=== PATIENT | female | born 1965 | race African-American/Black ===

== ENCOUNTER 2016-09-27 12:25 | Inpatient (IN) | payer BC ==
[~2016-09-27] VITALS: Ht 167.6 cm; Wt 84.7 kg
[2016-09-27] VITALS (12 sets, daily range): BP systolic 143–192; BP diastolic 78–127; PULSE 73–94; TEMP 36.3–37; O2SAT 97–100; Ht 167.6 cm; Wt 84.7 kg
[2016-09-27] MEDS ORDERED: LABETALOL HCL IV 5 MG/ML 20ML IV STA (12:46)
[2016-09-27 13:02] LABS: BASO % 0.5 %; BASO ABS # 0.03 K/uL (0-0.2); COMPLETE YES; EOS % 11.1 %; HEMATOCRIT 41.9 % (37-47); IG% 0.2 %; LYMPH % 25.9 %; LYMPH ABS # 1.49 K/uL (1.2-3.4); MEAN CELL VOLUME 89.3 fL (80-100); MEAN CORPUSCULAR HEMOGLOBIN 31.8 pg (25-34); MEAN CORPUSCULAR HGB CONC 35.6 g/dl (32-36); MEAN PLATELET VOLUME 10.5 fL (7.4-10.4); MONO % 4.9 %; NEUT % 57.4 %; PLATELET COUNT 262 K/uL (130-400); RED BLOOD COUNT 4.69 M/uL (4.2-5.4); WHITE BLOOD COUNT 5.75 K/uL (4.8-10.8)
[2016-09-27] MEDS ORDERED: NAPR1TAB9 PO (13:09)
--- NOTE | 2016-09-27 13:11 | DIAGNOSTIC IMAGING REPORT ---
SINGLE VIEW CHEST CLINICAL HISTORY: Hypertension. FINDINGS: An AP, portable, upright chest radiograph is obtained. No prior studies are available for comparison at the time of dictation. The heart is top normal for projection. There is mild atherosclerotic calcification of the thoracic aorta. The lungs and pleural spaces are clear. No pneumothorax is seen. The bony thorax is grossly intact. IMPRESSION: No acute cardiopulmonary abnormality. Electronically signed by: Mendez Sharma M.D. 09/27/2016 1:10 PM Dictated Date/Time: 09/27/2016 1:09 PM
[2016-09-27 13:12] LABS: PARTIAL THROMBOPLASTIN RATIO 1.1; PROTHROMBIN TIME (PATIENT) 10.4 SECONDS (9.0-12.0)
[2016-09-27 13:20] LABS: ALT/SGPT 21 U/L (12-78); BLOOD UREA NITROGEN 11 mg/dl (7-18); BUN/CREATININE RATIO 14.8 (10-20); CALCIUM 9.2 mg/dl (8.5-10.1); CARBON DIOXIDE 27 mmol/L (21-32); CHLORIDE 102 mmol/L (98-107); CREATININE 0.75 mg/dl (0.60-1.20); GLUCOSE 91 mg/dl (70-99); POTASSIUM 3.1 mmol/L (3.5-5.1); SODIUM 139 mmol/L (136-145)
[2016-09-27 13:30] LABS: ALKALINE PHOSPHATASE 148 U/L (45-117); AST/SGOT 29 U/L (15-37); URINE APPEARANCE CLEAR (CLEAR); URINE BILIRUBIN NEG (NEG); URINE COLOR YELLOW; URINE NITRITE NEG (NEG); URINE SPECIFIC GRAVITY 1.003 (1.000-1.030); UROBILINOGEN NEG (NEG)
[2016-09-27 13:36] LABS: MANUAL MICROSCOPIC REQUIRED? NO; REVIEW REQ? NO
--- NOTE | 2016-09-27 13:36 | DIAGNOSTIC IMAGING REPORT ---
CT SCAN OF THE BRAIN WITHOUT IV CONTRAST CLINICAL HISTORY: Hypertension. Dizziness. COMPARISON STUDY: No priors. TECHNIQUE: Unenhanced axial CT scan of the brain is performed from the vertex to the skull base. Automated dose control exposure was utilized. CT DOSE: 614.27 mGy.cm FINDINGS: Brain parenchyma: There is mild patchy subcortical and periventricular microangiopathic disease. There is no hemorrhage, mass effect, or evidence of acute territorial ischemia by CT criteria. North-white matter is preserved. No extra-axial fluid collection is seen. Ventricles, sulci, cisterns: Normal in configuration. Intracranial vasculature: The visualized intracranial vasculature at the skull base is normal in appearance. Calvarium: Unremarkable. Sinuses and mastoids: The visualized paranasal sinuses are clear. The mastoid air cells are well pneumatized. Orbits: The bony orbits are grossly intact. IMPRESSION: There is no hemorrhage, mass effect, or evidence of acute territorial ischemia by CT criteria. Electronically signed by: Mendez Sharma M.D. 09/27/2016 1:35 PM Dictated Date/Time: 09/27/2016 1:33 PM
[2016-09-27] MEDS ORDERED: HydrALAZINE HCL 20 MG/ML VIAL IV. STA (13:55)
[2016-09-27] MEDS ORDERED: POTASSIUM CHLORIDE 10 MEQ TABCR PO STA ×2 (13:56→14:57)
[2016-09-27] MEDS ORDERED: SPIRONOLACTONE 25 MG TAB PO ONE (14:15)
[2016-09-27] MEDS ORDERED: ALUMINUM/MAGNESIUM/SIMETH (MAALOX MAX) 30 ML UDC PO PRN (14:45)
[2016-09-27] MEDS ORDERED: ACETAMINOPHEN 325 MG TAB PO PRN (14:45)
[2016-09-27] MEDS ORDERED: MAGNESIUM HYDROXIDE SUSP 30 ML UDC PO PRN (14:45)
[2016-09-27] MEDS ORDERED: ONDANSETRON INJ 2 MG/ML 2 ML VIAL IV PRN (14:45)
--- NOTE | 2016-09-27 14:57 | History and Physical ---
History & Physical Date & Time of Service: Sep 27, 2016 at 14:17 Chief Complaint: Hypertension Primary Care Physician: Suzanne Walker M.D. History of Present Illness Source: patient This patient is a pleasant 50-year-old female that presents to emergency department from the eye doctors office with a significantly elevated blood pressure. The patient recently got health insurance. She made an appointment at the eye doctor because she was having difficulty with her far vision. Her blood pressure was taken in the office today an elevated at 235/184. An eye exam was then performed. She was noted to have grade 4 hypertensive retinopathy with hemorrhages noted. The patient does admit to feeling lightheaded on a regular basis. She also had a migraine the other day with sensitivity to light. She denies any shortness of breath. She denies any chest pain. No heart palpitations. The patient does have a history of hypertension. She unfortunately lost health insurance and has been off medications for approximately 1 year. She does not know which medication she used to take. She was switched to a few different medications. One in particular, made her cough. The patient was given 20 mg of labetalol IV. She was also given 2 doses of hydralazine 10 mg IV. Past Medical/Surgical History Medical Problems: (1) Hypertension Status: Chronic Surgical Problems: (1) S/P section Status: Resolved (2) S/P cholecystectomy Status: Resolved (3) S/P hysterectomy Status: Resolved Family History Cancer Diabetes mellitus Hypertension Mother-living hypertension Father at the age of 29. He was murdered. Social History Smoking Status: Never Smoker Alcohol Use: socially Marital Status: single Housing status: lives alone Occupational Status: employed Allergies Coded Allergies: No Known Allergies (Unverified , 09/27/16) Home Medications Scheduled PRN Naproxen (Aleve), 220 MG PO DAILY PRN for Pain Review of Systems 10 system review performed and negative unless noted in HPI or below Physical Exam Vital Signs Date Time Temp Pulse Resp B/P Pulse Ox O2 Delivery O2 Flow Rate FiO2 09/27/16 14:12 78 09/27/16 13:49 66 16 201/134 98 Room Air 09/27/16 13:11 64 24 219/133 98 Room Air 09/27/16 13:05 95 Room Air 09/27/16 12:30 36.5 72 18 250/144 98 Room Air General Appearance: + mild distress (mildly anxious in appearance.) Head: normocephalic Eyes: EOMI, + pertinent finding (sclera injected.) ENT: + pertinent finding (oral mucosa fairly dry.) Neck: no JVD Respiratory/Chest: lungs clear Cardiovascular: regular rate, rhythm Abdomen/GI: normal bowel sounds, non tender, soft Extremities/Musculoskelatal: no calf tenderness, no pedal edema Neurologic/Psych: no motor/sensory deficits, oriented x 3 Skin: warm/dry Diagnostics Laboratory Results Results Past 24 Hours Test 09/27/16 12:50 09/27/16 14:05 Range/Units White Blood Count 5.75 4.8-10.8 K/uL Red Blood Count 4.69 4.2-5.4 M/uL Hemoglobin 14.9 12.0-16.0 g/dL Hematocrit 41.9 37-47 % Mean Corpuscular Volume 89.3 80-100 fL Mean Corpuscular Hemoglobin 31.8 25-34 pg Mean Corpuscular Hemoglobin Concent 35.6 32-36 g/dl Platelet Count 262 130-400 K/uL Mean Platelet Volume 10.5 7.4-10.4 fL Neutrophils (%) (Auto) 57.4 % Lymphocytes (%) (Auto) 25.9 % Monocytes (%) (Auto) 4.9 % Eosinophils (%) (Auto) 11.1 % Basophils (%) (Auto) 0.5 % Neutrophils # (Auto) 3.30 1.4-6.5 K/uL Lymphocytes # (Auto) 1.49 1.2-3.4 K/uL Monocytes # (Auto) 0.28 0.11-0.59 K/uL Eosinophils # (Auto) 0.64 0-0.5 K/uL Basophils # (Auto) 0.03 0-0.2 K/uL RDW Standard Deviation 46.2 36.4-46.3 fL RDW Coefficient of Variation 14.1 11.5-14.5 % Immature Granulocyte % (Auto) 0.2 % Immature Granulocyte # (Auto) 0.01 0.00-0.02 K/uL Prothrombin Time 10.4 9.0-12.0 SECONDS Prothromb Time International Ratio 1.0 0.9-1.1 Activated Partial Thromboplast Time 29.4 21.0-31.0 SECONDS Partial Thromboplastin Ratio 1.1 Urine Color YELLOW Urine Appearance CLEAR CLEAR Urine pH 7.0 4.5-7.5 Urine Specific [place] 1.003 1.000-1.030 Urine Protein 1+ NEG Urine Glucose (UA) NEG NEG Urine Ketones NEG NEG Urine Occult Blood NEG NEG Urine Nitrite NEG NEG Urine Bilirubin NEG NEG Urine Urobilinogen NEG NEG Urine Leukocyte Esterase NEG NEG Urine WBC (Auto) 0 0-5 /hpf Urine RBC (Auto) 0-4 0-4 /hpf Urine Hyaline Casts (Auto) 0 0-5 /lpf Urine Epithelial Cells (Auto) 10-20 0-5 /lpf Urine Bacteria (Auto) NEG NEG Sodium Level 139 136-145 mmol/L Potassium Level 3.1 3.5-5.1 mmol/L Chloride Level 102 98-107 mmol/L Carbon Dioxide Level 27 21-32 mmol/L Anion Gap 10.0 3-11 mmol/L Blood Urea Nitrogen 11 7-18 mg/dl Creatinine 0.75 0.60-1.20 mg/dl Est Creatinine Clear Calc Drug Dose 96.3 ml/min Estimated GFR () 107.0 Estimated GFR (Non- 92.3 BUN/Creatinine Ratio 14.8 10-20 Random Glucose 91 70-99 mg/dl Calcium Level 9.2 8.5-10.1 mg/dl Total Bilirubin 0.6 0.2-1 mg/dl Direct Bilirubin 0.1 0-0.2 mg/dl Aspartate Amino Transf (AST/SGOT) 29 15-37 U/L Alanine Aminotransferase (ALT/SGPT) 21 12-78 U/L Alkaline Phosphatase 148 45-117 U/L Troponin I < 0.015 0-0.045 ng/ml Total Protein 9.4 6.4-8.2 gm/dl Albumin 4.4 3.4-5.0 gm/dl Lipase 122 73-393 U/L Thyroid Stimulating Hormone (TSH) 1.700 0.300-4.500 uIu/ml Diagnostic Radiology SINGLE VIEW CHEST CLINICAL HISTORY: Hypertension. FINDINGS: An AP, portable, upright chest radiograph is obtained. No prior studies are available for comparison at the time of dictation. The heart is top normal for projection. There is mild atherosclerotic calcification of the thoracic aorta. The lungs and pleural spaces are clear. No pneumothorax is seen. The bony thorax is grossly intact. IMPRESSION: No acute cardiopulmonary abnormality. Electronically signed by: Mendez Sharma M.D. 09/27/2016 1:10 PM Dictated Date/Time: 09/27/2016 1:[address] SCAN OF THE BRAIN WITHOUT IV CONTRAST CLINICAL HISTORY: Hypertension. Dizziness. COMPARISON STUDY: No priors. TECHNIQUE: Unenhanced axial CT scan of the brain is performed from the vertex to the skull base. Automated dose control exposure was utilized. CT DOSE: 614.27 mGy.cm FINDINGS: Brain parenchyma: There is mild patchy subcortical and periventricular microangiopathic disease. There is no hemorrhage, mass effect, or evidence of acute territorial ischemia by CT criteria. North-white matter is preserved. No extra-axial fluid collection is seen. Ventricles, sulci, cisterns: Normal in configuration. Intracranial vasculature: The visualized intracranial vasculature at the skull base is normal in appearance. Calvarium: Unremarkable. Sinuses and mastoids: The visualized paranasal sinuses are clear. The mastoid air cells are well pneumatized. Orbits: The bony orbits are grossly intact. IMPRESSION: There is no hemorrhage, mass effect, or evidence of acute territorial ischemia by CT criteria. Electronically signed by: Mendez Sharma M.D. 09/27/2016 1:35 PM Dictated Date/Time: 09/27/2016 1:33 PM EKG NSR 64 BPM LVH Impression Assessment and Plan 50-year-old female since the emergency department from the eye doctor with markedly hypertension and retinal hemorrhages. Noncompliance for insurance reasons. Hypertensive Urgency -Admit to telemetry -Continue Hydralazine 10 mg IV q 6 hr PRN -Begin spironolactone 50 mg daily -Begin nitropaste 2 in q 6 hr--> if good response, consider Imdur upon d/c -Would avoid karen as this likely gave the pt a cough -Consider Metoprolol XL 50 mg daily if HR is stable tomorrow -Trend cardiac enzymes -Monitor renal function -Check aldosterone level -Renal ultrasound -Check echo -check urine microalbumin -Additional recommendations pending response Hypokalemia -Given additional KCl 40 mEq po now DVT prophylaxis -Lovenox 40 mg subQ daily -TEDS, SCDs CODE STATUS -LEVEL I FULL CODE Level of Care Telemetry Resuscitation Status FULL RESUSCITATION VTE Prophylaxis VTE Risk Assessment Done? Y/N: Yes Risk Level: Low Given or contraindicated: Enoxaparin (Lovenox)SQ, T.EJose L Stockralf, SCD's Assessment and Plan Attending Addendum: I have physically seen and examined this patient, have directed their medical care, have supervised the PA's activity, and agree with the H&P as noted above, with the following changes: NONE. The patient is awake, well-developed and adequately nourished, alert and oriented 3, normocephalic and atraumatic, lying in bed and in no acute distress. HEENT--PERRL, EOMI, mucous membranes and oropharynx dry. Neck--supple, no JVD or bruits, thyroid normal, trachea midline, no adenopathy. Heart--normal S1 and S2, no extra beats, no murmurs, rubs or gallops. Lungs--clear bilaterally with good air movement, no respiratory distress, no accessory muscle use. Abdomen--normal bowel sounds and soft, nontender and nondistended, no hernias or masses, no organomegaly. Extremities--no cyanosis, clubbing or edema. There are good distal pulses b/l. Dermatologic--normal skin turgor, normal color, warm and dry, no abnormal lymph nodes, no rash. Neurologic--cranial nerves II through XII grossly intact, motor and sensory examination normal. Rheumatologic--normal range of motion, nontender, muscles and joints. Psychiatric--normal affect. Assessment and Plan: Hypertensive Urgency: The patient will be admitted to the telemetry unit, for serial cardiac enzymes, cardiac rhythm monitoring and a 2-D echocardiogram with Dopplers. She has received labetalol 20 mg IV and then hydralazine 10 mg IV in the emergency department with minimal improvement in blood pressure. Her Low potassium at 3.1 suggests the possibility of aldosteronism, and renin and aldosterone laboratories will be added to her current labs. She'll be started empirically on spironolactone 50 mg by mouth now and every morning, metoprolol tartrate 50 mg by mouth now and twice a day, Nitropaste 1 inch to the anterior chest wall every 6 hours, and with hydralazine 10 mg IV every 6 hours when necessary. We'll also order renal artery Dopplers and renal ultrasounds. EKG suggests left ventricular hypertrophy, will also send a microalbumin. If blood pressure is recalcitrant, could consider 24-hour studies for catecholamines, metanephrines and 5 HIAA. The patient should continue to follow-up with her eye doctor until resolution of the retinal hemorrhages.
[2016-09-27] MEDS: HydrALAZINE HCL 20 MG/ML VIAL IV. PRN ×3 (16:02→22:24)
[2016-09-27] MEDS: NITROGLYCERIN OINT 2% 1GM PACKET EXT SCH ×2 (16:08→22:00)
[2016-09-27] MEDS ORDERED: OXYCODONE/ACETAMINOPHEN 5-325 TAB PO ONE (20:00)
[2016-09-27] MEDS ORDERED: SODIUM CHLORIDE 0.65% NA SOLN 45 ML (OCEAN) PRN (20:00)
[2016-09-27] MEDS ORDERED: METOPROLOL TARTRATE 50 MG TAB PO STA (20:37)
--- NOTE | 2016-09-27 20:45 | EMERGENCY ROOM VISIT NOTE ---
History Report prepared by Renu: Janina Toth Under the Supervision of: Dr. Hebert Vergara M.D. First contact with patient: 12:40 Chief Complaint: HYPERTENSION Stated Complaint: HYPERTENSION History of Present Illness The patient is a 50 year old female who presents to the Emergency Room per physician referral to be evaluated for hypertension today. The patient had an appointment with her eye doctor today due to changes in her distance vision. She state that her blood pressure was 235/184. Her funduscopic exam revealed grade 4 hypertensive retinopathy with multiple flame hemorrhages. Her eye doctor as well as a local primary care office referred the patient to the ER for further evaluation. The patient complains that she has noticed some lightheadedness recently. Today, she felt like she was wheezing slightly. She states that she has a history of mild asthma. She also notes that certain body parts seem to have limited movement and she has had some worsening memory loss, "I think I have had mini-strokes." The patient has a history of hypertension but has not been on medications for about a year due to insurance issues. Pt denies LOC, headache, fevers, chills, diaphoresis, visual changes, neck pain, chest pain, nausea, vomiting, abdominal pain, back pain, melena, hematochezia, urinary symptoms, numbness, weakness, lymphadenopathy, rash, or other complaints. Source of History: patient Onset: today Position: other (global) Quality: other (high blood pressure) Timing: constant Note: Other symptoms: lightheadedness, wheezing Review of Systems See HPI for pertinent positives and negatives. A total of ten systems were reviewed and were otherwise negative. Past Medical & Surgical Medical Problems: (1) Hypertension (2) Hypertensive urgency Surgical Problems: (1) S/P section (2) S/P cholecystectomy (3) S/P hysterectomy Family History Cancer Diabetes mellitus Hypertension Social History Smoking Status: Never Smoker Occupation Status: employed Current/Historical Medications Scheduled PRN Naproxen (Aleve), 220 MG PO DAILY PRN for Pain Allergies Coded Allergies: No Known Allergies (Unverified , 09/27/16) Physical Exam Vital Signs Date Time Temp Pulse Resp B/P Pulse Ox O2 Delivery O2 Flow Rate FiO2 09/27/16 14:46 98 Room Air 09/27/16 14:44 87 18 177/86 98 Room Air 09/27/16 14:12 78 09/27/16 13:49 66 16 201/134 98 Room Air 09/27/16 13:11 64 24 219/133 98 Room Air 09/27/16 13:05 95 Room Air 09/27/16 12:30 36.5 72 18 250/144 98 Room Air Physical Exam GENERAL: Awake, alert, well appearing, no distress HENT: Normocephalic, atraumatic. Possible retinal hemorrhage in the medical aspect of the right fundi. TM's normal. Oropharynx unremarkable. EYES: PERRL. EOMI. Normal conjunctiva. Sclera non-icteric. NECK: Supple. No nuchal rigidity. FROM. No JVD or bruit. RESPIRATORY: CTA CARDIAC: RRR. No murmur. ABDOMEN: Soft, non distended. No tenderness to palpation. No rebound or guarding. No masses. RECTAL: Deferred. MUSCULOSKELETAL: Unremarkable. No edema. No discoloration. Gross motor strength symmetric. NEURO: Cranial nerves 2-12 grossly intact. Normal sensorium. No sensory or motor deficits noted. Speech normal. No pronator drift. SKIN: No rash or jaundice noted. LYMPH: No adenopathy. Medical Decision & Procedures ER Provider Diagnostic Interpretation: Radiology results as stated below per my review and radiologist interpretation: SINGLE VIEW CHEST CLINICAL HISTORY: Hypertension. FINDINGS: An AP, portable, upright chest radiograph is obtained. No prior studies are available for comparison at the time of dictation. The heart is top normal for projection. There is mild atherosclerotic calcification of the thoracic aorta. The lungs and pleural spaces are clear. No pneumothorax is seen. The bony thorax is grossly intact. IMPRESSION: No acute cardiopulmonary abnormality. Electronically signed by: Mendez Sharma M.D. 09/27/2016 1:10 PM Dictated Date/Time: 09/27/2016 1:[address] SCAN OF THE BRAIN WITHOUT IV CONTRAST CLINICAL HISTORY: Hypertension. Dizziness. COMPARISON STUDY: No priors. TECHNIQUE: Unenhanced axial CT scan of the brain is performed from the vertex to the skull base. Automated dose control exposure was utilized. CT DOSE: 614.27 mGy.cm FINDINGS: Brain parenchyma: There is mild patchy subcortical and periventricular microangiopathic disease. There is no hemorrhage, mass effect, or evidence of acute territorial ischemia by CT criteria. North-white matter is preserved. No extra-axial fluid collection is seen. Ventricles, sulci, cisterns: Normal in configuration. Intracranial vasculature: The visualized intracranial vasculature at the skull base is normal in appearance. Calvarium: Unremarkable. Sinuses and mastoids: The visualized paranasal sinuses are clear. The mastoid air cells are well pneumatized. Orbits: The bony orbits are grossly intact. IMPRESSION: There is no hemorrhage, mass effect, or evidence of acute territorial ischemia by CT criteria. Electronically signed by: Mendez Sharma M.D. 09/27/2016 1:35 PM Dictated Date/Time: 09/27/2016 1:33 PM Laboratory Results 09/27/16 12:50 Red Blood Count 4.69, Mean Corpuscular Volume 89.3, Mean Corpuscular Hemoglobin 31.8, Mean Corpuscular Hemoglobin Concent 35.6, Mean Platelet Volume 10.5, Neutrophils (%) (Auto) 57.4, Lymphocytes (%) (Auto) 25.9, Monocytes (%) (Auto) 4.9, Eosinophils (%) (Auto) 11.1, Basophils (%) (Auto) 0.5, Neutrophils # (Auto ) 3.30, Lymphocytes # (Auto) 1.49, Monocytes # (Auto) 0.28, Eosinophils # (Auto ) 0.64, Basophils # (Auto) 0.03 09/27/16 12:50 Test 09/27/16 12:50 09/27/16 14:30 White Blood Count 5.75 K/uL (4.8-10.8) Red Blood Count 4.69 M/uL (4.2-5.4) Hemoglobin 14.9 g/dL (12.0-16.0) Hematocrit 41.9 % (37-47) Mean Corpuscular Volume 89.3 fL (80-100) Mean Corpuscular Hemoglobin 31.8 pg (25-34) Mean Corpuscular Hemoglobin Concent 35.6 g/dl (32-36) Platelet Count 262 K/uL (130-400) Mean Platelet Volume 10.5 fL (7.4-10.4) Neutrophils (%) (Auto) 57.4 % Lymphocytes (%) (Auto) 25.9 % Monocytes (%) (Auto) 4.9 % Eosinophils (%) (Auto) 11.1 % Basophils (%) (Auto) 0.5 % Neutrophils # (Auto) 3.30 K/uL (1.4-6.5) Lymphocytes # (Auto) 1.49 K/uL (1.2-3.4) Monocytes # (Auto) 0.28 K/uL (0.11-0.59) Eosinophils # (Auto) 0.64 K/uL (0-0.5) Basophils # (Auto) 0.03 K/uL (0-0.2) RDW Standard Deviation 46.2 fL (36.4-46.3) RDW Coefficient of Variation 14.1 % (11.5-14.5) Immature Granulocyte % (Auto) 0.2 % Immature Granulocyte # (Auto) 0.01 K/uL (0.00-0.02) Prothrombin Time 10.4 SECONDS (9.0-12.0) Prothromb Time International Ratio 1.0 (0.9-1.1) Activated Partial Thromboplast Time 29.4 SECONDS (21.0-31.0) Partial Thromboplastin Ratio 1.1 Urine Color YELLOW Urine Appearance CLEAR (CLEAR) Urine pH 7.0 (4.5-7.5) Urine Specific [place] 1.003 (1.000-1.030) Urine Protein 1+ (NEG) Urine Glucose (UA) NEG (NEG) Urine Ketones NEG (NEG) Urine Occult Blood NEG (NEG) Urine Nitrite NEG (NEG) Urine Bilirubin NEG (NEG) Urine Urobilinogen NEG (NEG) Urine Leukocyte Esterase NEG (NEG) Urine WBC (Auto) 0 /hpf (0-5) Urine RBC (Auto) 0-4 /hpf (0-4) Urine Hyaline Casts (Auto) 0 /lpf (0-5) Urine Epithelial Cells (Auto) 10-20 /lpf (0-5) Urine Bacteria (Auto) NEG (NEG) Anion Gap 10.0 mmol/L (3-11) Est Creatinine Clear Calc Drug Dose 96.3 ml/min Estimated GFR () 107.0 Estimated GFR (Non- 92.3 BUN/Creatinine Ratio 14.8 (10-20) Calcium Level 9.2 mg/dl (8.5-10.1) Magnesium Level 2.2 mg/dl (1.8-2.4) Total Bilirubin 0.6 mg/dl (0.2-1) Direct Bilirubin 0.1 mg/dl (0-0.2) Aspartate Amino Transf (AST/SGOT) 29 U/L (15-37) Alanine Aminotransferase (ALT/SGPT) 21 U/L (12-78) Alkaline Phosphatase 148 U/L (45-117) Troponin I < 0.015 ng/ml (0-0.045) Total Protein 9.4 gm/dl (6.4-8.2) Albumin 4.4 gm/dl (3.4-5.0) Lipase 122 U/L (73-393) Thyroid Stimulating Hormone (TSH) 1.700 uIu/ml (0.300-4.500) Hepatitis C Antibody Screen NEG (NEG) Laboratory results reviewed by me Medications Administered Medications (Trade) Dose Ordered Sig/Nikki Route Start Time Stop Time Status Last Admin Dose Admin Labetalol HCl (Normodyne IV) 20 mg NOW STAT IV 09/27/16 12:46 09/27/16 12:48 DC 09/27/16 13:03 20 MG Hydralazine HCl (HydrALAZINE INJ) 10 mg NOW STAT IV. 09/27/16 13:55 09/27/16 13:57 DC 09/27/16 14:04 10 MG Potassium Chloride (Klor-Con M10) 20 meq NOW STAT PO 09/27/16 13:56 09/27/16 13:57 DC 09/27/16 14:04 20 MEQ Spironolactone (Aldactone Tab) 50 mg NOW ONCE PO 09/27/16 14:15 09/27/16 14:22 DC 09/27/16 14:46 50 MG Hydralazine HCl (HydrALAZINE INJ) 10 mg Q6H PRN IV. 09/27/16 14:45 10/27/16 14:44 09/27/16 16:03 10 MG Acetaminophen (Tylenol Tab) 650 mg Q4H PRN PO 09/27/16 14:45 10/27/16 14:44 09/27/16 17:52 650 MG ECG Indication: other (hypertension) Rate (beats per minute): 64 Rhythm: normal sinus Findings: nonspecific-ST abn, no acute ischemic change, other (LVH) ED Course 1243: The patient was evaluated in room A2. A complete history and physical exam was performed. 1246: Ordered Labetalol HCl 20 mg IV. 1341: I reassessed the patient. She was doing well. 1351: Upon reexamination, the patient was resting comfortably. I discussed the test results and treatment plan with her. The patient will be evaluated for further management. 1355: Ordered Hydralazine HCl 10 mg IV, Potassium Chloride 20 meq PO. 1402: I discussed the case with Dr. Efren VALDEZ Hospitalist. The patient will be evaluated for further management. Medical Decision Prior records/ancillary studies reviewed regarding the history above. Triage Nursing notes reviewed and agree them. Additional history obtained from the family. The patient's history was concerning for hypertension. Differential diagnosis: Etiologies such as hypertensive emergency, benign hypertension, cardiovascular pathology, pheochromocytoma, electrolyte abnormality, renal disease, endorgan damage, as well as others were entertained. Physical examination: As above. ER treatment provided: IV labetalol 20 mg IV hydralazine 10 mg Oral potassium On reassessment the patient felt better. Diagnostic interpretation by me: The electrocardiogram was negative for pathologic change. The labs revealed an unremarkable CBC. Mild hypokalemia. Urinalysis, troponin , TSH was negative. Imaging studies: Chest x-ray and CT scan as above The patient has severe hypertension with end organ findings. She was treated as above. Further management will be necessary. Consultation: A consultation was placed with the hospitalist. The case was discussed and diagnostics were reviewed. The patient was evaluated in the ER for further treatment. The chart was completed utilizing [email or web address] Speech voice recognition software. Grammatical errors, random word insertions, pronoun errors, and incomplete sentences are an occasional consequence of this system due to software limitations, ambient noise, and hardware issues. Any formal questions or concerns about the content, text, or information contained within the body of this dictation should be directly addressed to the physician for clarification. Consults Time Called: 1352 Consulting Physician: Dr. Efren VALDEZ Hospitalist Returned Call: 1402 I discussed the case with him. The patient will be evaluated for further management. Impression Primary Impression: Hypertensive emergency Critical Care I have personally spent greater than 30 minutes of critical care time in the direct management of this patient. This includes bedside care, interpretation of diagnostic studies, and testing, discussion with consultants, patient, and other required patient management activities. This 30 minutes is in excess of all separately billable procedures. Scribe Attestation The scribe's documentation has been prepared under my direction and personally reviewed by me in its entirety. I confirm that the note above accurately reflects all work, treatment, procedures, and medical decision making performed by me. Departure Information Dispostion Being Evaluated By Hospitalist Referrals No Doctor, Assigned (PCP) Patient Instructions My [facility]
[2016-09-27] MEDS ORDERED: ENOXAPARIN 40 MG/0.4 ML SYR SC SCH (21:00)
[2016-09-28] VITALS (11 sets, daily range): BP systolic 152–191; BP diastolic 84–118; PULSE 62–68; TEMP 36.6–36.9; O2SAT 91–98
[2016-09-28] MEDS: NITROGLYCERIN OINT 2% 1GM PACKET EXT SCH ×4 (03:44→21:41)
--- NOTE | 2016-09-28 06:13 | DIAGNOSTIC IMAGING REPORT ---
Renal arterial Doppler DUPLEX RENAL ARTERY CLINICAL HISTORY: elevated bp hypertension TECHNIQUE: Doppler ultrasound COMPARISON STUDY: None FINDINGS: Unremarkable arterial Doppler. Velocities waveforms are unremarkable. Impedance characteristics are unremarkable. IMPRESSION: No significant stenosis Electronically signed by: Matty Adame M.D. 09/28/2016 6:12 AM Dictated Date/Time: 09/28/2016 6:11 AM
[2016-09-28] MEDS ORDERED: NURSING VERBAL MED ORDER ONE (06:30)
[2016-09-28] MEDS ORDERED: OXYCODONE/ACETAMINOPHEN 5-325 TAB PO SCH (06:30)
--- NOTE | 2016-09-28 06:34 | DIAGNOSTIC IMAGING REPORT ---
RENAL ULTRASOUND HISTORY: Hypertension elevated bp COMPARISON: None. FINDINGS: Right kidney: Maximum dimension 9.7 cm. No evidence for hydronephrosis Normal corticomedullary differentiation and cortical thickness. Left kidney: Maximum dimension 10.4 cm. No evidence for hydronephrosis Normal corticomedullary differentiation and cortical thickness. Bladder: No bladder wall thickening. The bilateral ureteral jets were identified. IMPRESSION: Normal renal ultrasound. Electronically signed by: Matty Adame M.D. 09/28/2016 6:32 AM Dictated Date/Time: 09/28/2016 6:32 AM
[2016-09-28] MEDS: METOPROLOL TARTRATE 50 MG TAB PO SCH ×2 (08:01→20:24)
[2016-09-28] MEDS ORDERED: HydrALAZINE HCL 20 MG/ML VIAL IV. PRN (08:45)
[2016-09-28] MEDS ORDERED: SPIRONOLACTONE 25 MG TAB PO SCH (09:00)
[2016-09-28] MEDS ORDERED: NAPROXEN 250 MG TAB PO STA (09:07)
--- NOTE | 2016-09-28 09:27 | Progress Note ---
Subjective Date of Service: Sep 28, 2016. Subjective Pt evaluation today including: conversation w/ patient, physical exam, chart review, lab review, review of studies, review of inpatient medication list Voiding: no voiding problems Complaining about left upper temporal area area o headache, mild photophobia, reported vision in the left side is improved compared to yesterday, no anterior auricle area pain, no fever and chill, Problem List Medical Problems: (1) Hypertensive emergency Status: Acute Review of Systems Constitutional: No chills, No fatigue, No fever, No problem reported, No sweats , No weakness, No weight loss Eyes: No diplopia, No discharge, No eye pain, No redness, No worsening of vision ENT: No dental problems, No hearing loss, No nasal symptoms, No sore throat, No tinnitus, No trouble swallowing, No unusual epistaxis Respiratory: No cough, No dyspnea at rest, No dyspnea on exertion, No hemoptysis, No shortness of breath, No sputum, No wheezing Cardiac: No PND, No chest pain, No claudication, No edema, No orthopnea, No palpitations Abdomen: No constipation, No diarrhea, No nausea, No pain, No vomiting Musculoskeletal: No calf pain, No joint pain, No muscle pain, No swelling Female : No abnormal vaginal bleeding, No dysuria, No hematuria, No incontinence, No urinary frequency, No vaginal discharge Neurologic: No balance problems, No memory loss, No numbness/tingling, No paralysis, No vertigo, No weakness Psychiatric: No anhedonism, No anxiety, No depression symptoms, No insomnia, No substance abuse Heme: No abnormal bleeding/bruising, No clotting problems, No night sweats, No swollen lymph nodes Endo: No excessive thirst, No excessive urination, No fatigue Skin: No bleeding, No color change, No itch, No new/changing skin lesions, No rash Objective Vital Signs Date Time Temp Pulse Resp B/P Pulse Ox O2 Delivery O2 Flow Rate FiO2 09/28/16 08:05 36.6 64 16 191/118 98 Room Air 175/105 09/28/16 04:00 96 Room Air 09/28/16 03:20 36.9 67 16 152/90 96 Room Air 09/28/16 00:00 98 Room Air 09/27/16 23:21 37.0 94 158/78 98 Room Air 09/27/16 22:45 157/82 09/27/16 22:05 79 192/127 09/27/16 20:30 93 170/111 09/27/16 20:00 97 Room Air 09/27/16 19:45 36.8 84 20 186/109 97 Room Air 09/27/16 18:45 36.5 83 20 162/91 98 Room Air 09/27/16 17:30 82 153/90 81 158/88 09/27/16 16:28 73 147/91 Nasal Cannula 143/87 09/27/16 16:02 36.3 94 22 182/119 100 Room Air 09/27/16 16:00 98 Room Air 09/27/16 15:20 90 22 196/115 98 Room Air 09/27/16 14:46 98 Room Air 09/27/16 14:44 87 18 177/86 98 Room Air 09/27/16 14:12 78 09/27/16 13:49 66 16 201/134 98 Room Air 09/27/16 13:11 64 24 219/133 98 Room Air 09/27/16 13:05 95 Room Air 09/27/16 12:30 36.5 72 18 250/144 98 Room Air Physical Exam General Appearance: WD/WN, no apparent distress Eyes: normal inspection, PERRL, EOMI, sclerae normal ENT: normal ENT inspection, hearing grossly normal, pharynx normal Neck: supple, no adenopathy, thyroid normal, no JVD, no carotid bruits, trachea midline Respiratory/Chest: chest non-tender, lungs clear, normal breath sounds, no respiratory distress, no accessory muscle use Cardiovascular: regular rate, rhythm, no edema, no gallop, no JVD, no murmur Abdomen: normal bowel sounds, non tender, soft, no organomegaly, no pulsatile mass Extremities: normal range of motion, non-tender, normal inspection, no pedal edema, no calf tenderness, normal capillary refill, pelvis stable Neurologic/Psychiatric: apparel manager II-XII nml as tested, no motor/sensory deficits, alert, normal mood/affect, oriented x 3 Skin: normal color, warm/dry, no rash, + pertinent finding (left temporal artery area has no local red, tender,) Lymphatic: no adenopathy Laboratory Results Last 24 Hours Test 09/27/16 12:50 3/13/17 14:30 09/28/16 06:43 09/28/16 08:23 White Blood Count 5.75 K/uL Red Blood Count 4.69 M/uL Hemoglobin 14.9 g/dL Hematocrit 41.9 % Mean Corpuscular Volume 89.3 fL Mean Corpuscular Hemoglobin 31.8 pg Mean Corpuscular Hemoglobin Concent 35.6 g/dl Platelet Count 262 K/uL Mean Platelet Volume 10.5 fL Neutrophils (%) (Auto) 57.4 % Lymphocytes (%) (Auto) 25.9 % Monocytes (%) (Auto) 4.9 % Eosinophils (%) (Auto) 11.1 % Basophils (%) (Auto) 0.5 % Neutrophils # (Auto) 3.30 K/uL Lymphocytes # (Auto) 1.49 K/uL Monocytes # (Auto) 0.28 K/uL Eosinophils # (Auto) 0.64 K/uL Basophils # (Auto) 0.03 K/uL RDW Standard Deviation 46.2 fL RDW Coefficient of Variation 14.1 % Immature Granulocyte % (Auto) 0.2 % Immature Granulocyte # (Auto) 0.01 K/uL Prothrombin Time 10.4 SECONDS Prothromb Time International Ratio 1.0 Activated Partial Thromboplast Time 29.4 SECONDS Partial Thromboplastin Ratio 1.1 Urine Color YELLOW Urine Appearance CLEAR Urine pH 7.0 Urine Specific [place] 1.003 Urine Protein 1+ Urine Glucose (UA) NEG Urine Ketones NEG Urine Occult Blood NEG Urine Nitrite NEG Urine Bilirubin NEG Urine Urobilinogen NEG Urine Leukocyte Esterase NEG Urine WBC (Auto) 0 /hpf Urine RBC (Auto) 0-4 /hpf Urine Hyaline Casts (Auto) 0 /lpf Urine Epithelial Cells (Auto) 10-20 /lpf Urine Bacteria (Auto) NEG Sodium Level 139 mmol/L Potassium Level 3.1 mmol/L Chloride Level 102 mmol/L Carbon Dioxide Level 27 mmol/L Anion Gap 10.0 mmol/L Blood Urea Nitrogen 11 mg/dl Creatinine 0.75 mg/dl Est Creatinine Clear Calc Drug Dose 96.3 ml/min Estimated GFR () 107.0 Estimated GFR (Non- 92.3 BUN/Creatinine Ratio 14.8 Random Glucose 91 mg/dl Calcium Level 9.2 mg/dl Magnesium Level 2.2 mg/dl Total Bilirubin 0.6 mg/dl Direct Bilirubin 0.1 mg/dl Aspartate Amino Transf (AST/SGOT) 29 U/L Alanine Aminotransferase (ALT/SGPT) 21 U/L Alkaline Phosphatase 148 U/L Troponin I < 0.015 ng/ml Total Protein 9.4 gm/dl Albumin 4.4 gm/dl Lipase 122 U/L Thyroid Stimulating Hormone (TSH) 1.700 uIu/ml Hepatitis C Antibody Screen NEG Urine Random Microalbumin 180.0 mg/L Assessment and Plan 50-year-old female admitted on 09/27/2016 from the eye doctor with markedly hypertension and retinal hemorrhages. Noncompliance for insurance reasons. Hypertensive Urgency: Improved, stable Significant family history of early onset hypertension, mom has hypertension diagnosed at 20-year-old Significant hypertension with medicine noncompliance, however and the differential diagnosis include secondary hypertension because of early onset of OH at 40s, and poor controlled, and family history of early onset The differential diagnosis include renal artery stenosis which has been rule out because of renal artery ultrasound were negative, patient is having hypokinemia, Conn syndrome is in the list of differential diagnosis, renin and Aldactone level were sent, I'm sending 24-hour metanephrine and serum metanephrine fraction, and checking cortisol level, TSH patient willing to have follow-up with the PCP will have Navigator to setting up appointment in 5-7 days, Headache, without any evidence of left temporal artery area red or tender, differential diagnoses include temporal arteritis, but I feel the risks is very low, we'll check ESR left retinal hemorrhage, lesion is not getting worse today, I told her to follow-up with glass forming engineer, I counseling about the importance of blood pressure control Hypokalemia, am labs is pending will f/u plan: cont tele, Continue but increased Hydralazine 20 mg IV q 6 hr PRN cont spironolactone 50 mg daily cont Metoprolol XL 50 mg daily if HR is stable tomorrow -Trend cardiac enzymes -f/u echo DVT prophylaxis -Discontinue Lovenox 40 mg subQ daily, because of left retinal hemorrhage -Continue TEDS, SCDs CODE STATUS -LEVEL I FULL CODE Continued [facility] stay due to: multiple IV medications needed Discharge planning: home
[2016-09-28 09:49] LABS: BUN/CREATININE RATIO 15.4 (10-20); CREATININE 0.8 mg/dl (0.60-1.20); MAGNESIUM 2.3 mg/dl (1.8-2.4); POTASSIUM 3.6 mmol/L (3.5-5.1)
--- NOTE | 2016-09-28 10:40 | ECHOCARDIOGRAM REPORT ---
*NOTICE TO RECEIVING DEMOCRAT AGENCY This information is strictly Confidential and protected under [place] law. [place] law prohibits you from making any further disclosure of this information unless further disclosure is expressly permitted by the written consent of the person to whom it pertains or is authorized by law. A general authorization for the release of medical or other information is not sufficient for this purpose. Hospital accepts no responsibility if the information is made available to any other person, INCLUDING THE PATIENT. Interpretation Summary * Name: DRE MUIR Study Date: 09/28/2016 08:07 AM BP: 175/105 mmHg * Patient Location: C.2T\S\S240\S\2 HR: 67 * : 1965 (M/d/yyyy) Gender: Female Height: 66 in * Age: 50 yrs Ethnicity: AA Weight: 182 lb * Ordering Physician: Guy Schwartz * Referring Physician: Self, Referred * Performed By: Babita Gonzales RDCS * * Reason For Study: MALIGNANT HTN * BSA: 1.9 m2 * History: MALIGNANT HTN * -- Conclusions -- * 1. Normal left ventricular size systolic function. EF 60-65%. No regional wall motion abnormalities. Moderate concentric left ventricular hypertrophy. Type 1 diastolic dysfunction. * 2. No significant valvular abnormalities. * 3. No prior study available for comparison. Procedure Details * A complete two-dimensional transthoracic echocardiogram was performed (2D, M-mode, Doppler and color flow Doppler). Left Ventricle * Normal left ventricular size systolic function. EF 60-65%. No regional wall motion abnormalities. Moderate concentric left ventricular hypertrophy. Type 1 diastolic dysfunction. Right Ventricle * The right ventricle is normal in size and function. * The right ventricular systolic function is normal as assessed by tricuspid annular plane systolic excursion (TAPSE) (normal >1.5 cm). Atria * The left atrial size is normal. * Right atrial size is normal. * There is no evidence of atrial septal defect, but resolution does not allow assessment for a patent foramen ovale. Mitral Valve * The mitral valve is normal in structure and function. * There is no mitral valve stenosis. * There is trace mitral regurgitation. Tricuspid Valve * The tricuspid valve is not well visualized, but is grossly normal. * There is no tricuspid stenosis. * Significant tricuspid regurgitation is absent. Aortic Valve * The aortic valve is normal in structure and function. * The aortic valve is trileaflet. * No hemodynamically significant valvular aortic stenosis. * No aortic regurgitation is present. Pulmonic Valve * The pulmonary valve is inadequately visualized, but the Doppler data is adequate for interpretation. * There is no pulmonic valvular stenosis. * There is no significant pulmonary regurgitation. Great Vessels * The aortic root is normal size. * Aortic arch of normal dimension. * Normal hepatic and pulmonary venous flow patterns. Pericardium/Pleural * There is no pericardial effusion. Great Vessels * Normal inferior vena cava size and collapsability with sniff indicates a normal right atrial pressure of 3 mmHg MMode 2D Measurements and Calculations IVSd 1.4 cm IVSs 1.9 cm LVIDd 4.2 cm LVIDs 2.8 cm LVPWd 1.4 cm LVPWs 1.8 cm IVS/LVPW 0.99 FS 32.7 % EDV(Teich) 77.4 ml ESV(Teich) 29.8 ml EF(Teich) 61.5 % EDV(cubed) 72.7 ml ESV(cubed) 22.2 ml EF(cubed) 69.5 % % IVS thick 38.9 % % LVPW thick 28.2 % LV mass(C)d 215.4 grams LV mass(C)dI 112.1 grams/m\S\2 LV mass(C)s 207.7 grams LV mass(C)sI 108.1 grams/m\S\2 SV(Teich) 47.6 ml SI(Teich) 24.8 ml/m\S\2 SV(cubed) 50.5 ml SI(cubed) 26.3 ml/m\S\2 Ao root diam 3.0 cm Ao root area 7.3 cm\S\2 LA dimension 3.6 cm LA/Ao 1.2 LVAd ap4 26.4 cm\S\2 LVLd ap4 8.1 cm EDV(MOD-sp4) 72.3 ml EDV(sp4-el) 72.9 ml LVAs ap4 14.1 cm\S\2 LVLs ap4 6.6 cm ESV(MOD-sp4) 28.4 ml ESV(sp4-el) 25.5 ml EF(MOD-sp4) 60.7 % EF(sp4-el) 65.0 % LVAd ap2 25.5 cm\S\2 LVLd ap2 8.2 cm EDV(MOD-sp2) 70.1 ml EDV(sp2-el) 67.4 ml LVAs ap2 15.4 cm\S\2 LVLs ap2 7.1 cm ESV(MOD-sp2) 29.8 ml ESV(sp2-el) 28.2 ml EF(MOD-sp2) 57.5 % EF(sp2-el) 58.1 % LVLd %diff 0.68 % EDV(MOD-bp) 71.8 ml LVLs %diff 7.5 % ESV(MOD-bp) 29.5 ml EF(MOD-bp) 58.9 % SV(MOD-sp4) 43.9 ml SI(MOD-sp4) 22.8 ml/m\S\2 SV(MOD-sp2) 40.3 ml SI(MOD-sp2) 21.0 ml/m\S\2 SV(MOD-bp) 42.3 ml SI(MOD-bp) 22.0 ml/m\S\2 SV(sp4-el) 47.3 ml SI(sp4-el) 24.6 ml/m\S\2 SV(sp2-el) 39.2 ml SI(sp2-el) 20.4 ml/m\S\2 Doppler Measurements and Calculations MV E max alexander 66.0 cm/sec MV A max alexander 78.6 cm/sec MV E/A 0.84 MV dec time 0.27 sec Ao V2 max 144.6 cm/sec Ao max PG 8.4 mmHg Ao max PG (full) 5.3 mmHg LV V1 max PG 3.0 mmHg LV V1 max 86.8 cm/sec TV E max alexander 66.0 cm/sec RAP systole 3.0 mmHg
[2016-09-28] MEDS: NAPROXEN 250 MG TAB PO PRN (12:25)
[2016-09-28] MEDS ORDERED: LISINOPRIL 5 MG TAB PO ONE (15:00)
[2016-09-29] VITALS: O2SAT 96
[2016-09-29 02:56] VITALS: BP 126/81; PULSE 59; TEMP 36.5; O2SAT 93
[2016-09-29 04:00] VITALS: O2SAT 93
[2016-09-29] MEDS: NITROGLYCERIN OINT 2% 1GM PACKET EXT SCH ×2 (04:00→10:00)
[2016-09-29] MEDS: NAPROXEN 250 MG TAB PO PRN ×2 (06:03→13:16)
[2016-09-29 06:46] LABS: BUN/CREATININE RATIO 20.8 (10-20); CALCIUM 8.8 mg/dl (8.5-10.1); CREATININE 0.77 mg/dl (0.60-1.20); MAGNESIUM 2.1 mg/dl (1.8-2.4); POTASSIUM 3.8 mmol/L (3.5-5.1)
[2016-09-29 07:31] VITALS: BP_SYST 173; BP_SYST 179; BP_DIAS 105; BP_DIAS 110; PULSE 64; TEMP 36.9; O2SAT 96
[2016-09-29] MEDS ORDERED: METO50TA17 PO (08:05)
[2016-09-29] MEDS ORDERED: LSN5 PO (08:05)
[2016-09-29] MEDS ORDERED: LISINOPRIL 5 MG TAB PO SCH (09:00)
[2016-09-29] MEDS: METOPROLOL TARTRATE 50 MG TAB PO SCH (09:08)
--- NOTE | 2016-09-29 09:26 | Discharge Instructions ---
Discharge Instructions Date of Service Sep 29, 2016. Admission Reason for Admission: Hypertensive Urgency Discharge Discharge Diagnosis / Problem: hypertension and retinal hemorrhages Discharge Goals Goal(s): Decrease discomfort, Improve function, Increase independence, Improve disease control, Improve nutritional status, Learn about illness, Diagnostic testing, Therapeutic intervention, Prevent Disease Progression, Specific goals Activity Recommendations Activity Limitations: per Instructions/Follow-up section Exercise/Sports Limitations: gradually increase as tolerated May Resume Sexual Activity: when tolerated Shower/Bathe: no limitations . Instructions / Follow-Up Instructions / Follow-Up You have Hypertensive Urgency: You possible have secondary hypertension and difficult controlled hypertension I give you to blood pressure medication you should take it as instructed Recommend to check blood pressure 2 time a day, writing down the number, and bring the log to the follow-up visit with PCP You need to call 911 or go to emergency room if systolic blood pressure more than 200, or if have any signs of severe headache, blurred vision, nausea, vomiting, chest pain you have left retinal hemorrhage you need to follow-up with principal database developer, your echocardiogram showed Moderate concentric left ventricular hypertrophy and Type 1 diastolic dysfunction, very likely from uncontrolled high blood pressure, you need to follow-up with PCP of this condition - you need to follow up with your primary care physician as scheduled - take medication as instructed, never overdose or any misuse, or take with alcohol, because misuse of medicine may cause organ damage or , call your primary care physician if have questions of medicaitons. - call your primary care physician OR go to local emergency room if has any fever/chill, chest pain, shortness of breathing, nausea/vomiting/abdominal pain , facial droop/slurry speech/local weakness, or if has any questions. - fall precaution - diet as instructed - you should understand that it is important to follow up the above instruction , and "not following the above instruction" may cause delayed or missed care of your medical conditions which may cause permanent organ damage and even . Current Hospital Diet Patient's current hospital diet: Regular Diet Discharge Diet Recommended Diet: Low Sodium Diet (2gm Na) Pending Studies Studies pending at discharge: no Laboratory Results Meds Administered (Past 24Hrs) Medications (Trade) Dose Ordered Sig/Nikki Route Start Time Stop Time Status Last Admin Dose Admin Labetalol HCl (Normodyne IV) 20 mg NOW STAT IV 09/27/16 12:46 09/27/16 12:48 DC 09/27/16 13:03 20 MG Hydralazine HCl (HydrALAZINE INJ) 10 mg NOW STAT IV. 09/27/16 13:55 09/27/16 13:57 DC 09/27/16 14:04 10 MG Potassium Chloride (Klor-Con M10) 20 meq NOW STAT PO 09/27/16 13:56 09/27/16 13:57 DC 09/27/16 14:04 20 MEQ Spironolactone (Aldactone Tab) 50 mg NOW ONCE PO 09/27/16 14:15 09/27/16 14:22 DC 09/27/16 14:46 50 MG Nitroglycerin (Nitroglycerin 2% Oint) 1 inch Q6H EXT 09/27/16 16:00 10/27/16 14:44 09/27/16 16:08 1 INCH Spironolactone (Aldactone Tab) 50 mg QAM PO 09/28/16 09:00 10/28/16 08:59 Future Hold 09/28/16 08:02 50 MG Hydralazine HCl (HydrALAZINE INJ) 10 mg Q6H PRN IV. 09/27/16 14:45 09/28/16 08:25 DC 09/27/16 22:24 10 MG Enoxaparin Sodium (Lovenox Inj) 40 mg Q24H SC 09/27/16 21:00 09/28/16 08:25 DC 09/27/16 21:20 40 MG Acetaminophen (Tylenol Tab) 650 mg Q4H PRN PO 09/27/16 14:45 10/27/16 14:44 09/27/16 17:52 650 MG Ondansetron HCl (Zofran Inj) 4 mg Q6H PRN IV 09/27/16 14:45 10/27/16 14:44 09/28/16 10:06 4 MG Potassium Chloride (Klor-Con M10) 40 meq NOW STAT PO 09/27/16 14:57 09/27/16 15:08 DC 09/27/16 15:24 40 MEQ Sodium Chloride ([place] Nasal [place]) 1 sprays UD PRN NA 09/27/16 20:00 10/27/16 19:59 09/27/16 20:31 1 SPRAYS Oxycodone/ Acetaminophen (Percocet 5-325mg Tab) 1 tab NOW ONCE PO 09/27/16 20:00 09/27/16 20:06 DC 09/27/16 20:30 1 TAB Metoprolol Tartrate (Lopressor Tab) 50 mg NOW STAT PO 09/27/16 20:37 09/27/16 20:54 DC 09/27/16 21:21 50 MG Metoprolol Tartrate (Lopressor Tab) 50 mg BID PO 09/28/16 09:00 10/28/16 08:59 09/29/16 09:08 50 MG Oxycodone/ Acetaminophen (Percocet 5-325mg Tab) 1 tab TODAY@0630 PO 09/28/16 06:30 09/28/16 07:30 DC 09/28/16 06:39 1 TAB Hydralazine HCl (HydrALAZINE INJ) 20 mg Q6H PRN IV. 09/28/16 08:45 10/28/16 08:44 09/29/16 07:53 20 MG Naproxen (Naprosyn Tab) 250 mg NOW STAT PO 09/28/16 09:07 09/28/16 09:17 DC 09/28/16 10:07 250 MG Naproxen (Naprosyn Tab) 250 mg BID PRN PO 09/28/16 09:15 10/28/16 09:14 09/29/16 06:03 250 MG Lisinopril (Zestril Tab) 5 mg QAM PO 09/29/16 09:00 10/29/16 08:59 09/29/16 09:08 5 MG Lisinopril (Zestril Tab) 5 mg 1500 ONCE PO 09/28/16 15:00 09/28/16 15:01 DC 09/28/16 15:40 5 MG Medical Emergencies . Who to Call and When: Medical Emergencies: If at any time you feel your situation is an emergency, please call 911 immediately. . Non-Emergent Contact Non-Emergency issues call your: Primary Care Provider . . "Provider Documentation" section prepared by Krishna Scott. VTE Core Measure Inpt VTE Proph given/why not?: Enoxaparin (Lovenox)SQ, T.E.D. Stockings, SCD's
--- NOTE | 2016-09-29 09:49 | Discharge Summary ---
Discharge Summary Date of Service Sep 29, 2016. Discharge Summary Admission Date: Sep 27, 2016 at 14:56 Discharge Date: Sep 29, 2016 Discharge Disposition: Home Principal Diagnosis: Hypertensive Urgency: Problems/Secondary Diagnoses: Hypertensive Urgency: possible have secondary hypertension and difficult controlled hypertension left retinal hemorrhage Moderate concentric left ventricular hypertrophy and Type 1 diastolic dysfunction, compensated Procedures: EKG, echocardiogram, Echocardiogram per report on 09/28/2016 in below Interpretation Summary * Reason For Study: MALIGNANT HTN * BSA: 1.9 m2 * History: MALIGNANT HTN * -- Conclusions -- * 1. Normal left ventricular size systolic function. EF 60-65%. No regional wall motion abnormalities. Moderate concentric left ventricular hypertrophy. Type 1 diastolic dysfunction. * 2. No significant valvular abnormalities. * 3. No prior study available for comparison. Medication Reconciliation New Medications: Lisinopril (Lisinopril) 5 Mg Tab 5 MG PO QAM for 30 Days, #30 TAB Metoprolol Tartrate (Metoprolol Tartrate) 50 Mg Tab 50 MG PO BID for 30 Days, #60 TAB hold when sbp<110, or HR<65 Continued Medications: Naproxen (Aleve) 220 Mg Tab 220 MG PO DAILY PRN for Pain, TAB Discharge Exam Was having headache this morning, blood pressure systolic blood pressure was 179 in the episodes, had headache resolved after blood pressure improved, No other complaint now, eating good out off bed no dizziness Review of Systems: Constitutional: No chills, No fatigue, No fever, No problem reported, No sweats, No weakness, No weight loss Eyes: No diplopia, No discharge, No eye pain, No problem reported, No redness, No worsening of vision ENT: No dental problems, No hearing loss, No nasal symptoms, No problem reported, No sore throat, No tinnitus, No trouble swallowing, No unusual epistaxis Respiratory: No cough, No dyspnea at rest, No dyspnea on exertion, No hemoptysis, No problem reported, No shortness of breath, No sputum, No wheezing Cardiovascular: No PND, No chest pain, No claudication, No edema, No orthopnea, No palpitations, No problem reported Abdomen: No GI bleeding, No constipation, No diarrhea, No nausea, No pain, No problem reported, No vomiting Musculoskeletal: No calf pain, No joint pain, No muscle pain, No problem reported, No swelling Genitourinary - Female: No dysmenorrhea, No dysuria, No hematuria, No menorrhagia, No metrorrhagia, No , No problem reported, No rash, No urinary frequency, No urinary incontinence, No urinary retention, No urinary urgency, No vaginal bleeding, No vaginal discharge, No vaginal itching, No vulvodynia Neurologic: No balance problems, No memory loss, No numbness/tingling, No paralysis, No problem reported, No vertigo, No weakness Psychiatric: No anhedonism, No anxiety, No depression symptoms, No insomnia , No problem reported, No substance abuse Endocrine: No excessive thirst, No excessive urination, No fatigue, No problem reported Hematologic / Lymphatic: No abnormal bleeding/bruising, No clotting problems , No night sweats, No problem reported, No swollen lymph nodes Integumentary: No bleeding, No color change, No itch, No new/changing skin lesions, No problem reported, No rash Physical Exam: General Appearance: WD/WN, no apparent distress Eyes: normal inspection, PERRL, EOMI ENT: normal ENT inspection, hearing grossly normal, TMs normal Neck: supple, no adenopathy, thyroid normal Respiratory/Chest: chest non-tender, lungs clear, normal breath sounds, no respiratory distress Cardiovascular: regular rate, rhythm, no edema, no gallop, no JVD, no murmur , normal peripheral pulses Abdomen / GI: normal bowel sounds, non tender, soft, no organomegaly, no pulsatile mass Extremities: normal inspection, no calf tenderness, normal capillary refill , no pedal edema, normal range of motion 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 Noncompliance for insurance reasons. Hypertensive Urgency: Improved, mild fluctuation, but highest was at 179 Significant family history of early onset hypertension, mom has hypertension diagnosed at 20-year-old Significant hypertension with medicine noncompliance, however and the differential diagnosis include secondary hypertension because of early onset of OH at 40s, and poor controlled, and family history of early onset The differential diagnosis include renal artery stenosis which has been rule out because of renal artery ultrasound were negative, patient is having hypokinemia, Conn syndrome is in the list of differential diagnosis, renin and Aldactone level were sent, I'm sending 24-hour metanephrine and serum metanephrine fraction, and checking cortisol level, TSH patient willing to have follow-up with the PCP will have Navigator to setting up appointment in 5-7 days, Headache, without any evidence of left temporal artery area red or tender, differential diagnoses include temporal arteritis, but I feel the risks is very low, checked ESR, which was 20, therefore temporal arteritis is very less likely Has length discussion about the importance of blood pressure control which can prevent heart disease, stroke, damages to other organ/ systems such as kidney, encourage above medicine compliant, and follow-up with family doctor, and encourage her to report to family doctor if have any questions left retinal hemorrhage, lesion is not getting worse today, I told her to follow-up with exhibition carver, I counseling about the importance of blood pressure control Hypokalemia, resolved will f/u plan: Has been on tele, Continue but increased Hydralazine 20 mg IV q 6 hr PRN Discontinue spironolactone 50 mg daily cont Metoprolol XL 50 mg twice a day with parameter to hold Continue lisinopril, which was started from yesterday -Trend cardiac enzymes which was negative echo in the above Renal artery ultrasound was done, has no renal artery stenosis Tests for the secondary hypertension such as metanephrine fraction, 24 hour urine metanephrine level, renin and Aldactone level were sent, Random cortisol level is elevated in the morning , will check abdominal CT with contrast to rule out adrenal grand adenoma TSH was normal PCP please follow-up the results DVT prophylaxis -Discontinue Lovenox 40 mg subQ daily, because of left retinal hemorrhage -Continue TEDS, SCDs CODE STATUS -LEVEL I FULL CODE Instructions / Follow-Up You have Hypertensive Urgency: You possible have secondary hypertension and difficult controlled hypertension I give you to blood pressure medication you should take it as instructed Recommend to check blood pressure 2 time a day, writing down the number, and bring the log to the follow-up visit with PCP You need to call 911 or go to emergency room if systolic blood pressure more than 200, or if have any signs of severe headache, blurred vision, nausea, vomiting, chest pain you have left retinal hemorrhage you need to follow-up with exhibition carver, your echocardiogram showed Moderate concentric left ventricular hypertrophy and Type 1 diastolic dysfunction, very likely from uncontrolled high blood pressure, you need to follow-up with PCP of this condition - you need to follow up with your primary care physician as scheduled - take medication as instructed, never overdose or any misuse, or take with alcohol, because misuse of medicine may cause organ damage or , call your primary care physician if have questions of medicaitons. - call your primary care physician OR go to local emergency room if has any fever/chill, chest pain, shortness of breathing, nausea/vomiting/abdominal pain , facial droop/slurry speech/local weakness, or if has any questions. - fall precaution - diet as instructed - you should understand that it is important to follow up the above instruction , and "not following the above instruction" may cause delayed or missed care of your medical conditions which may cause permanent organ damage and even . Total Time Spent: Greater than 30 minutes This includes examination of the patient, discharge planning, medication reconciliation, and communication with other providers. Discharge Instructions Please refer to the electronic Patient Visit Report (Discharge Instructions) for additional information.
[2016-09-29 10:49] VITALS: BP 144/85; PULSE 66; TEMP 36.8; O2SAT 97
[2016-09-29 11:06] VITALS: BP 173/110; PULSE 64; TEMP 36.9; O2SAT 96
[2016-09-29] MEDS ORDERED: OPTIRAY 320 IV PRN (13:15)
--- NOTE | 2016-09-29 13:19 | DIAGNOSTIC IMAGING REPORT ---
CT abdomen ABD WITH IV CONTRAST ONLY (CT) CLINICAL HISTORY: Hypertension. Elevated cortisol TECHNIQUE: Transaxial acquisition with multi axial reformatted images COMPARISON STUDY: None FINDINGS: Lung bases are clear. Liver spleen and pancreas are unremarkable. Prior cholecystectomy. The adrenal glands are normal. Kidneys enhance uniformly. Bowel pattern is nonobstructive. There is no significant abdominal or retroperitoneal adenopathy. IMPRESSION: Normal study post cholecystectomy Electronically signed by: Matty Adame M.D. 09/29/2016 1:17 PM Dictated Date/Time: 09/29/2016 1:14 PM
[2016-09-30 13:25] LABS: NORMETANEPHRINE PLASMA 190 pg/mL (<=148); TOTAL METANEPHRINE PLASMA 262 pg/mL (<=205)
[2017-01-17] MEDS ORDERED: AMLO-114 PO (10:57)
[2017-01-17] MEDS ORDERED: METO25TA56 PO (10:57)
[2017-01-17] MEDS ORDERED: NAPR-1169 PO ×2 (10:58→11:12)
[2017-01-17] MEDS ORDERED: CLS1 PO (10:58)
== END 2016-09-29 15:00 | disposition home or self-care (01) | DRG 305 ==
LOC: ENRESERVTM → ENRESERVDT → C.EDB 12:28 → C.2T 14:56
PROVIDERS: ADMIT Hospitalist; ATTEND Hospitalist
DX: I16.0 Hypertensive urgency (principal); I15.9 Secondary hypertension, unspecified; H35.032 Hypertensive retinopathy, left eye; H35.60 Retinal hemorrhage, unspecified eye; E87.6 Hypokalemia; J45.909 Unspecified asthma, uncomplicated; Z91.14 Patient's other noncompliance with medication regimen; Z59.8 Other problems related to housing and economic circumstances

== ENCOUNTER → 2017-01-19 | Day surgery (SDC) | payer BC ==
[2017-01-17 10:59] VITALS: Ht 167.6 cm; Wt 79.5 kg
[~2017-01-19] VITALS: Ht 167.6 cm; Wt 79.5 kg
[~2017-01-19] MED LIST: AMLO-114 PO; CLS1 PO; LIDOCAINE HCL 2% 2 ML VIAL (20MG/ML) ONE; METO25TA56 PO; NAPR-1169 PO; PROPOFOL IV EMULSION 10 MG/ML 20 ML VIAL IV ONE; SODIUM CHLORIDE 0.9% 500ML 500 ML IV ONE
--- NOTE | 2017-01-19 11:37 | Endo History and Physical ---
History & Physical Date of Service: Jan 19, 2017. Chief Complaint: screening,chronic diarrhea Referring Physician: History of Present Illness 51 yo CF who presents for colonoscopy secondary to chronic diarrhea. Past Surgical History Hx Cardiac Surgery: No Hx Internal Defibrillator: No Hx Pacemaker: No Hx Abdominal Surgery: Yes (GALL BLADDER, , HYSTERECTOMY BSO/ APPENDECTOMY) Hx of Implantable Prosthesis: No Hx Post-Op Nausea and Vomiting: No Hx Cancer Surgery: No Hx Thoracic Surgery: No Hx Orthopedic: No Hx Urinary Tract Surgery: No Family History None Social History Smoking Status: Never Smoker Hx Substance Use: No Hx Alcohol Use: Yes (3 X A WEEK ) Allergies Coded Allergies: Latex1 -Allergic Contact Dermititis (Verified Allergy, Unknown, RASH WEARING LATEX GLOVES, 01/19/17) NO KNOWN DRUG ALLERGIES (Verified Allergy, Unknown, NONE, 01/19/17) Current Medications Reported Home Medications Medications Dose Route/Sig Max Daily Dose Days Date Category Naprosyn (Naproxen) 500 Mg Tab 500 Mg PO BID PRN 01/17/17 Reported Colestid (Colestipol HCl) 1 Gm Tab 1 Gm PO BID PRN 01/17/17 Reported Lopressor (Metoprolol Tartrate) 25 Mg Tab 25 Mg PO BID 01/17/17 Reported Norvasc (Amlodipine Besylate) 10 Mg Tab 10 Mg PO QAM 01/17/17 Reported Vital Signs Weight (Kilograms): 79.55 Height (Feet): 5 Height (Inches): 6 Date Time Temp Pulse Resp B/P (MAP) Pulse Ox O2 Delivery O2 Flow Rate FiO2 01/19/17 10:34 36.5 54 24 151/91 (111) 100 Room Air Physical Exam General Appearance: WD/WN, no apparent distress Respiratory/Chest: Auscultation: breath sounds normal Cardiovascular: Heart Auscultation: RRR Abdomen: Bowel Sounds: normal Inspection & Palpation: soft, non-distended, no tenderness, guarding & rebound Assessment and Plan Assessment: 51 yo CF who presents for colonoscopy secondary to chronic diarrhea. Plan: Proceed with colonoscopy.
--- NOTE | 2017-01-19 12:14 | GI REPORT ---
Procedure Date: 01/19/2017 11:19 AM Procedure: Colonoscopy Indications: Chronic diarrhea Medicines: Monitored Anesthesia Care Complications: No immediate complications. Estimated Blood Loss: Estimated blood loss: none. Procedure: Pre-Anesthesia Assessment: - Prior to the procedure, a History and Physical was performed, and patient medications and allergies were reviewed. The patient's tolerance of previous anesthesia was also reviewed. The risks and benefits of the procedure and the sedation options and risks were discussed with the patient. All questions were answered, and informed consent was obtained. Prior Anticoagulants: The patient has taken no previous anticoagulant or antiplatelet agents. ASA Grade Assessment: II - A patient with mild systemic disease. After reviewing the risks and benefits, the patient was deemed in satisfactory condition to undergo the procedure. After I obtained informed consent, the scope was passed under direct vision. Throughout the procedure, the patient's blood pressure, pulse, and oxygen saturations were monitored continuously. The scope was introduced through the anus and advanced to the terminal ileum. The colonoscopy was performed without difficulty. The patient tolerated the procedure well. The quality of the bowel preparation was good. The terminal ileum, ileocecal valve, appendiceal orifice, and rectum were photographed. Findings: A 3 mm polyp was found in the rectum. The polyp was sessile. The polyp was removed with a cold biopsy forceps. Resection and retrieval were complete. Multiple small-mouthed diverticula were found in the sigmoid colon. Non-bleeding internal hemorrhoids were found during retroflexion. The hemorrhoids were small. Several random biopsies were obtained with cold forceps for histology in the entire colon. Fluid aspiration for cytology was performed in the entire colon. Impression: - One 3 mm polyp in the rectum, removed with a cold biopsy forceps. Resected and retrieved. - Diverticulosis in the sigmoid colon. - Non-bleeding internal hemorrhoids. - Several random biopsies were obtained in the entire colon. - Fluid aspiration was performed. Recommendation: - Resume previous diet. - Continue present medications. - Repeat colonoscopy for surveillance based on pathology results. - Return to primary care physician as previously scheduled. Vishal Kellogg DO 01/19/2017 12:14:06 PM This report has been signed electronically. Note Initiated On: 01/19/2017 11:19 AM I attest to the content of the Intraoperative Record and orders documented therein, exceptions below
--- NOTE | 2017-01-19 12:15 | Discharge Instructions ---
Endoscopy Patient Instructions Date / Procedure(s) Performed Jan 19, 2017. Colonoscopy Allergy Information Coded Allergies: Latex1 -Allergic Contact Dermititis (Verified Allergy, Unknown, RASH WEARING LATEX GLOVES, 01/19/17) NO KNOWN DRUG ALLERGIES (Verified Allergy, Unknown, NONE, 01/19/17) Discharge Date / Findings Jan 19, 2017. Random colon biopsies Stool aspirate collected Rectal polyp Diverticulosis Internal hemorrhoids Medication Instructions OK to resume all medications today as prescribed Reported Home Medications Medications Dose Route/Sig Max Daily Dose Days Date Category Naprosyn (Naproxen) 500 Mg Tab 500 Mg PO BID PRN 01/17/17 Reported Colestid (Colestipol HCl) 1 Gm Tab 1 Gm PO BID PRN 01/17/17 Reported Lopressor (Metoprolol Tartrate) 25 Mg Tab 25 Mg PO BID 01/17/17 Reported Norvasc (Amlodipine Besylate) 10 Mg Tab 10 Mg PO QAM 01/17/17 Reported Provider Instructions Activity Restrictions - No exercising or heavy lifting for 24 hours. - Do not drink alcohol the day of the procedure. - Do not drive a car or operate machinery until the day after the procedure. - Do not make any important decisions or sign important papers in 24 hours after the procedure. Following Day: - Return to full activity which may include returning to work/school. Diet Start your diet with liquids and light foods (jello, soup, juice, toast). Then eat your usual diet if not nauseated. Treatment For Common After Affects For mild abdominal pain, bloating, or excessive gas: - Rest - Eat lightly - Lie on right side Follow-Up Information Follow-up with as scheduled Anesthesia Information What You Should Know You have had a procedure that required some medicine to reduce anxiety and discomfort. This treatment is called moderate sedation. After receiving the treatment, you may be sleepy, but you will be able to breathe on your own. The effects of the treatment may last for several hours. Follow these instructions along with Activity/Diet recommendations noted above: * Do NOT do anything where dizziness or clumsiness would be dangerous. * Rest quietly at home today, then you can be up and about tomorrow. * Have a responsible person stay with you the rest of today. * You may have had an I.V. today. If so, you may take the dressing off later today. Recommendations Call your doctor if: * Trouble breathing * Continuous vomiting for more than 24 hours * Temperature above 101 degrees * Severe abdominal pain or bloating * Pain not relieved by pain medicine ordered * There is increased drainage or redness from any incision * A large amount of rectal bleeding greater than 2-3 tablespoons. (If you had a polyp/s removed or have hemorrhoids, a small amount of blood - from the rectum is to be expected.) * You have any unanswered questions or concerns. IN THE EVENT OF A SERIOUS EMERGENCY, GO TO THE NEAREST EMERGENCY ROOM Your discharge instructions were prepared by provider Vishal Kellogg. Patient Instructions Signature Page Eli Quintana Patient (or Guardian) Signature/Date: I have read and understand the instructions given to me by my caregivers. Caregiver/RN/Doctor Signature/Date: The above-named patient and/or guardian has received patient instructions on this date. + Original Patient Signature Page (only) stays with chart. Please make copy for patient.
--- NOTE | 2017-01-19 12:15 | Anesthesiology Progress Note ---
Anesthesia Post Op Note Date & Time Jan 19, 2017 at 12:14 Vital Signs Pain Intensity: 2 Vital Signs Past 12 Hours Date Time Temp Pulse Resp B/P (MAP) Pulse Ox O2 Delivery O2 Flow Rate FiO2 01/19/17 12:12 55 20 107/61 (76) 100 Room Air 01/19/17 10:34 36.5 54 24 151/91 (111) 100 Room Air Notes Mental Status: alert / awake / arousable, participated in evaluation Pt Amnestic to Procedure: Yes Nausea / Vomiting: adequately controlled Pain: adequately controlled Airway Patency, RR, SpO2: stable & adequate BP & HR: stable & adequate Hydration State: stable & adequate Anesthetic Complications: no major complications apparent
[2017-01-19 12:45] VITALS: BP 132/78; PULSE 52; O2SAT 100
== END | disposition home or self-care (01) ==
LOC: C.GI 10:05
PROVIDERS: ATTEND Internal Medicine
DX: K62.1 Rectal polyp (principal); K57.30 Diverticulosis of large intestine without perforation or abscess without bleeding; K64.8 Other hemorrhoids; R19.7 Diarrhea, unspecified; Z79.899 Other long term (current) drug therapy

== ENCOUNTER → 2017-04-01 | Outpatient (CLI) | payer BC ==
[~2017-04-01] MED LIST changes: -LIDOCAINE HCL 2% 2 ML VIAL (20MG/ML) ONE; -PROPOFOL IV EMULSION 10 MG/ML 20 ML VIAL IV ONE; -SODIUM CHLORIDE 0.9% 500ML 500 ML IV ONE
--- NOTE | 2017-04-01 09:53 | DIAGNOSTIC IMAGING REPORT ---
LEFT HAND MIN 3 VIEWS ROUTINE CLINICAL HISTORY: M25.50 [id number] Wrist pain, chronic, [id number] COMPARISON: None. DISCUSSION: The bones and joint spaces appear intact. There is no evidence of fracture, dislocation or bony disease. There is no evidence for soft tissue swelling. IMPRESSION: Negative study. The above report was generated using voice recognition software. It may contain grammatical, syntax or spelling errors. Electronically signed by: Matty Adame M.D. 04/01/2017 9:51 AM Dictated Date/Time: 04/01/2017 9:51 AM
--- NOTE | 2017-04-01 09:53 | DIAGNOSTIC IMAGING REPORT ---
RIGHT HAND MIN 3 VIEWS ROUTINE CLINICAL HISTORY: M25.50 [id number] Wrist pain, chronic, [id number] Right COMPARISON: None. DISCUSSION: The bones and joint spaces appear intact. There is no evidence of fracture, dislocation or bony disease. There is no evidence for soft tissue swelling. IMPRESSION: Negative study. The above report was generated using voice recognition software. It may contain grammatical, syntax or spelling errors. Electronically signed by: Matty Adame M.D. 04/01/2017 9:52 AM Dictated Date/Time: 04/01/2017 9:51 AM
--- NOTE | 2017-04-01 09:57 | DIAGNOSTIC IMAGING REPORT ---
RIGHT WRIST MIN 3 VIEWS ROUTINE CLINICAL HISTORY: M25.50 [id number] Wrist pain, chronic, [id number] Right pain COMPARISON: None. DISCUSSION: Moderate degenerative change of the radiocarpal as well as intercarpal and carpal metacarpal joints. There is no evidence for soft tissue swelling. IMPRESSION: Mild/moderate degenerative change. No acute process. The above report was generated using voice recognition software. It may contain grammatical, syntax or spelling errors. Electronically signed by: Matty Adame M.D. 04/01/2017 9:55 AM Dictated Date/Time: 04/01/2017 9:55 AM
--- NOTE | 2017-04-01 10:05 | DIAGNOSTIC IMAGING REPORT ---
RIGHT KNEE 2 VIEWS HISTORY: Right knee pain. COMPARISON: None. FINDINGS: There is no fracture or dislocation. Trace knee effusion. Tiny marginal osteophytes within the medial and patellofemoral compartments. However, the cartilage spaces are maintained. No radiopaque foreign bodies. IMPRESSION: Trace knee effusion. Minimal degenerative change. Electronically signed by: Owen Garcia M.D. 04/01/2017 10:04 AM Dictated Date/Time: 04/01/2017 10:03 AM
== END | disposition home or self-care (01) ==
LOC: C.RAD1850 09:24
PROVIDERS: ATTEND Internal Medicine Rheumatology
DX: M25.50 Pain in unspecified joint (principal); M25.531 Pain in right wrist; M25.561 Pain in right knee; M19.032 Primary osteoarthritis, left wrist

== ENCOUNTER 2017-05-03 11:03 | Emergency (ER) | payer BC ==
[~2017-05-03] VITALS: Ht 167.6 cm; Wt 87.5 kg
[2017-05-03 11:08] VITALS: TEMP 36.3; Ht 167.6 cm; Wt 87.5 kg
[2017-05-03] MEDS ORDERED: LOSARTAN POTASSIUM 50 MG TAB PO STA (11:43)
[2017-05-03] MEDS ORDERED: MONT1TAB3 PO (11:55)
[2017-05-03] MEDS ORDERED: AZEL30SP NAE (11:55)
[2017-05-03] MEDS ORDERED: ALBUAER INH (11:55)
[2017-05-03 12:07] LABS: BASO % 1.1 %; BASO ABS # 0.05 K/uL (0-0.2); COMPLETE YES; EOS % 9.7 %; LYMPH ABS # 1.64 K/uL (1.2-3.4); MEAN CELL VOLUME 90.9 fL (80-100); MEAN CORPUSCULAR HEMOGLOBIN 31.7 pg (25-34); MEAN CORPUSCULAR HGB CONC 34.9 g/dl (32-36); MEAN PLATELET VOLUME 10.8 fL (7.4-10.4); MONO % 9.7 %; NEUT % 43.5 %; PLATELET COUNT 254 K/uL (130-400); RED BLOOD COUNT 4.07 M/uL (4.2-5.4); WHITE BLOOD COUNT 4.55 K/uL (4.8-10.8)
[2017-05-03 12:16] LABS: INR 0.9 (0.9-1.1); PARTIAL THROMBOPLASTIN RATIO 1.1; PROTHROMBIN TIME (PATIENT) 10.1 SECONDS (9.0-12.0)
--- NOTE | 2017-05-03 12:23 | EMERGENCY ROOM VISIT NOTE ---
History Report prepared by Renu: Robina Garza Under the Supervision of: Dr. Olivier Oliver M.D. First contact with patient: 11:19 Chief Complaint: HYPERTENSION Stated Complaint: HIGH BLOOD PRESSURE History of Present Illness The patient is a 51 year old female with a past medical history of HTN who presents to the ED with a cc of HTN beginning CALCINE FURNACE TENDER. The patient has had some sinus congestion recently and had an appointment with her trust and estates attorney today regarding this issue. At the office the patient's BP was elevated at 212/140. They called her PCP, who advised the patient to come to the ED for further evaluation. She was taking Metoprolol and amlodipine but stopped the amlodipine because of side effects. She has not been taking any OTC cough and cold medications for her congestion issues. Negative headache. Pt reports feeling lightheaded while at work yesterday. She has had recent weight gain and is concerned she may be retaining fluids. Source of History: patient Onset: CALCINE FURNACE TENDER Position: other (global) Symptom Intensity: BP 212/140 Quality: other (hypertension) Timing: constant Associated Symptoms: No headache Note: Pt lightheaded. Review of Systems See HPI for pertinent positives and negatives. A total of ten systems were reviewed and were otherwise negative. Past Medical & Surgical Medical Problems: (1) Hypertension (2) Hypertensive urgency Surgical Problems: (1) S/P section (2) S/P cholecystectomy (3) S/P hysterectomy Family History Cancer Diabetes mellitus Hypertension Social History Smoking Status: Never Smoker Marital Status: single Occupation Status: employed Current/Historical Medications Scheduled Azelastine Hcl-Fluticasone Pro (Dymista), 1 SPRY ELFEGO BID Losartan Potassium (Cozaar), 1 TAB PO DAILY Metoprolol Tartrate (Lopressor) (Lopressor), 25 MG PO BID Montelukast Sodium (Singulair), 1 TAB PO DAILY Scheduled PRN Albuterol Sulfate (Proventil Hfa), 2 PUFFS INH BID PRN for ALLERGIES Naproxen (Naprosyn), 500 MG PO BID PRN for PRN Allergies Coded Allergies: Latex1 -Allergic Contact Dermititis (Verified Allergy, Unknown, RASH WEARING LATEX GLOVES, 05/03/17) NO KNOWN DRUG ALLERGIES (Verified Allergy, Unknown, NONE, 01/19/17) Physical Exam Vital Signs Date Time Temp Pulse Resp B/P (MAP) Pulse Ox O2 Delivery O2 Flow Rate FiO2 05/03/17 13:37 57 214/121 96 05/03/17 12:36 49 208/123 05/03/17 12:07 45 225/121 05/03/17 11:33 55 199/121 05/03/17 11:24 57 05/03/17 11:23 51 196/116 05/03/17 11:08 36.3 55 18 232/129 99 Room Air Physical Exam GENERAL: Awake, alert, well-appearing, NAD HENT: Normocephalic, atraumatic. EYES: Normal conjunctiva. Sclera non-icteric. NECK: Supple. No nuchal rigidity. FROM. RESPIRATORY: CTAB, no rhonchi, wheezing, crackles CARDIAC: RRR, no MRG ABDOMEN: Soft, NTND, BS+ MSK: No chest wall TTP, no LE edema NEURO: CN 2-12 intact, 5/5 upper and lower extremity strength, no dysmetria, no drift, good finger to nose, no sensory deficits. SKIN: No rash or jaundice noted. Medical Decision & Procedures Laboratory Results 05/03/17 11:50 Red Blood Count 4.07, Mean Corpuscular Volume 90.9, Mean Corpuscular Hemoglobin 31.7, Mean Corpuscular Hemoglobin Concent 34.9, Mean Platelet Volume 10.8, Neutrophils (%) (Auto) 43.5, Lymphocytes (%) (Auto) 36.0, Monocytes (%) (Auto) 9.7, Eosinophils (%) (Auto) 9.7, Basophils (%) (Auto) 1.1, Neutrophils # (Auto) 1.98, Lymphocytes # (Auto) 1.64, Monocytes # (Auto) 0.44, Eosinophils # (Auto) 0.44, Basophils # (Auto) 0.05 05/03/17 11:50 Test 05/03/17 11:50 05/03/17 12:30 White Blood Count 4.55 K/uL (4.8-10.8) Red Blood Count 4.07 M/uL (4.2-5.4) Hemoglobin 12.9 g/dL (12.0-16.0) Hematocrit 37.0 % (37-47) Mean Corpuscular Volume 90.9 fL (80-100) Mean Corpuscular Hemoglobin 31.7 pg (25-34) Mean Corpuscular Hemoglobin Concent 34.9 g/dl (32-36) Platelet Count 254 K/uL (130-400) Mean Platelet Volume 10.8 fL (7.4-10.4) Neutrophils (%) (Auto) 43.5 % Lymphocytes (%) (Auto) 36.0 % Monocytes (%) (Auto) 9.7 % Eosinophils (%) (Auto) 9.7 % Basophils (%) (Auto) 1.1 % Neutrophils # (Auto) 1.98 K/uL (1.4-6.5) Lymphocytes # (Auto) 1.64 K/uL (1.2-3.4) Monocytes # (Auto) 0.44 K/uL (0.11-0.59) Eosinophils # (Auto) 0.44 K/uL (0-0.5) Basophils # (Auto) 0.05 K/uL (0-0.2) RDW Standard Deviation 43.4 fL (36.4-46.3) RDW Coefficient of Variation 13.1 % (11.5-14.5) Immature Granulocyte % (Auto) 0.0 % Immature Granulocyte # (Auto) 0.00 K/uL (0.00-0.02) Prothrombin Time 10.1 SECONDS (9.0-12.0) Prothromb Time International Ratio 0.9 (0.9-1.1) Activated Partial Thromboplast Time 29.2 SECONDS (21.0-31.0) Partial Thromboplastin Ratio 1.1 Anion Gap 4.0 mmol/L (3-11) Est Creatinine Clear Calc Drug Dose 95.2 ml/min Estimated GFR () 102.9 Estimated GFR (Non- 88.8 BUN/Creatinine Ratio 14.0 (10-20) Calcium Level 8.7 mg/dl (8.5-10.1) Urine Color YELLOW Urine Appearance CLEAR (CLEAR) Urine pH 8.0 (4.5-7.5) Urine Specific [place] 1.010 (1.000-1.030) Urine Protein NEG (NEG) Urine Glucose (UA) NEG (NEG) Urine Ketones NEG (NEG) Urine Occult Blood NEG (NEG) Urine Nitrite NEG (NEG) Urine Bilirubin NEG (NEG) Urine Urobilinogen NEG (NEG) Urine Leukocyte Esterase TRACE (NEG) Urine WBC (Auto) 1-5 /hpf (0-5) Urine RBC (Auto) 0-4 /hpf (0-4) Urine Hyaline Casts (Auto) 0 /lpf (0-5) Urine Epithelial Cells (Auto) 10-20 /lpf (0-5) Urine Bacteria (Auto) NEG (NEG) Laboratory results reviewed by me. Medications Administered Medications (Trade) Dose Ordered Sig/Nikki Route Start Time Stop Time Status Last Admin Dose Admin Losartan Potassium (coZAAR TAB) 50 mg ONE STAT PO 05/03/17 11:43 05/03/17 11:46 DC 05/03/17 11:52 50 MG ECG Indication: other Rate (beats per minute): 52 Rhythm: sinus bradycardia Findings: 1st degree AV block, other (right axis deviation) ED Course 1129: The patient was evaluated in room C5. A complete history and physical exam was performed. 1143: Losartan Potassium 50 mg PO 1258: I reassessed the patient at this time. She is feeling better and resting comfortably. I discussed the results and treatment plan with the patient. I answered all pertaining questions that she had. She expressed understanding and verbalized agreement. The patient will be discharged home. Medical Decision The patient is a 51 year old female with a past medical history of HTN who presents to the ED with a cc of HTN beginning CALCINE FURNACE TENDER. Differential diagnoses includes increased salt intake, noncompliance, renal artery stenosis, Conn syndrome. Patient was seen and evaluated at the bedside. Prior to arrival and initially patient did have a high blood pressure. Patient states that she does take metoprolol. Patient no longer takes lisinopril and was started on amlodipine however secondary to what sounds like lymphedema patient was taken off her amlodipine. Patient otherwise is asymptomatic and has no headache no chest pain or shortness of breath. Patient was given a dose of 50 mg losartan did have her CBC and BMP checked. Patient is normal renal function. UA clear. Patient was told that she needs to restrict her salt intake as she states that she does eat affirmative salts. Patient was also told that she needs to improve her diet as well as consider exercise. Patient was feeling well was given a prescription. Patient was told to follow-up with her PCP to further manage her hypertension. Patient had had a workup for hypertensive urgency earlier this year which included an echo additional lab work and other studies. Patient had negative renal ultrasound for possible renal artery stenosis. Patient again was feeling well without any neurologic deficits without any acute pain. Patient was also told to avoid Sudafed given her rhinorrhea. Patient was given strict follow-up, discharge, return precautions. Patient agreeable plan of care patient was safely discharged home. Medication Reconcilliation Current Medication List: was personally reviewed by me Blood Pressure Screening Patient's blood pressure: Elevated blood pressure Blood pressure disposition: Referred to PCP Impression Primary Impression: Hypertension Scribe Attestation The scribe's documentation has been prepared under my direction and personally reviewed by me in its entirety. I confirm that the note above accurately reflects all work, treatment, procedures, and medical decision making performed by me. Departure Information Dispostion Home / Self-Care Prescriptions Losartan Potassium (COZAAR) 50 Mg Tab 1 TAB PO DAILY for 30 Days, #30 TAB 1 Refill Prov: Olivier Oliver M.D. 05/03/17 Referrals Jose Spann M.D. (PCP) Patient Instructions Diet Low Salt Ar, [facility] Additional Instructions Please return to the emergency department if you have worsening or recurrent symptoms not amenable to at-home treatment. Please call for a follow-up appointment with her primary care physician. Please take your medications as prescribed. If you have other concerns and/or complaints please feel free to also call your primary care physician's office or return the ED for further evaluation, management, and treatment. You were found to have an elevated blood pressure today (>120 sytolic or >90 diastolic). Per medicare guidelines, you need to follow up with this blood pressure screening with your Primary Care Physician (PCP). For a new PCP call [phone]. You received narcotic or benzodiazepene medication while in the emergency room today. This is an addictive medication that may cause drowziness as well as constipation. Do not drive, operate heavy machinery, or drink alcohol under the influence of this medication. Avoid NSAIDs like ibuprofen and naproxen as they may worsen your high blood pressure. Limit salt and improve your diet with exercise. You have been examined and treated today on an emergency basis only. This is not a substitute for, or an effort to provide, complete comprehensive medical care. It is impossible to recognize and treat all injuries or illnesses in a single emergency department visit. It is therefore important that you follow up closely with [facility]. Call as soon as possible for an appointment. Thank you for your time and consideration. I look forward to speaking with you again soon. Please don't hesitate to call us if you have any questions. Problem Qualifiers Primary Impression: Hypertension Hypertension type: essential hypertension Qualified Codes: I10 - Essential ( primary) hypertension
[2017-05-03 12:25] LABS: CALCIUM 8.7 mg/dl (8.5-10.1); CREATININE 0.77 mg/dl (0.60-1.20); POTASSIUM 3.2 mmol/L (3.5-5.1)
[2017-05-03 13:00] LABS: URINE APPEARANCE CLEAR (CLEAR); URINE BILIRUBIN NEG (NEG); URINE COLOR YELLOW; URINE NITRITE NEG (NEG); UROBILINOGEN NEG (NEG)
[2017-05-03 13:01] LABS: MANUAL MICROSCOPIC REQUIRED? NO; REVIEW REQ? NO
[2017-05-03] MEDS ORDERED: LOSA50TA6 PO (13:09)
[2017-05-03 13:37] VITALS: BP 214/121; PULSE 57; O2SAT 96
== END 2017-05-03 13:38 | disposition home or self-care (01) ==
LOC: C.EDB 11:05 → C.EDC 13:38
DX: I10 Essential (primary) hypertension (principal); Z98.891 History of uterine scar from previous surgery; Z90.710 Acquired absence of both cervix and uterus; Z90.49 Acquired absence of other specified parts of digestive tract; Z83.3 Family history of diabetes mellitus; Z82.49 Family history of ischemic heart disease and other diseases of the circulatory system; Z79.899 Other long term (current) drug therapy

== ENCOUNTER 2019-09-18 08:56 | Inpatient (IN) ==
[2019-09-18] MEDS ORDERED: POLYETHYLENE (MIRALAX) 17 GM PACK PO PRN (10:02)
[2019-09-18] MEDS ORDERED: ACETAMINOPHEN 325 MG TAB PO PRN (10:02)
[2019-09-18] MEDS ORDERED: NITROGLYCERIN SL 0.4 MG/TAB TAB SL PRN (10:02)
[2019-09-18] MEDS ORDERED: ONDANSETRON INJ 2 MG/ML 2 ML VIAL IV PRN (10:02)
[2019-09-18] MEDS ORDERED: SODIUM CHLORIDE 0.9% 1000ML 1,000 ML IV SCH (10:15)
--- NOTE | 2019-09-18 10:16 | History & Physical Report ---
Date of Service September 18, 2019 Assessment & Plan (1) Hypertensive urgency: 53-year-old female with a history of hypertension and GERD admitted to the hospital for hypertensive urgency after being seen in the outpatient setting was elevated blood pressures and intermittent blurring of vision. 1. Hypertensive urgency - restarted on home medications of 100 mg losartan once a day, hydrochlorothiazidetriamterene 50 mg / 75 mg - We will slowly titrate down blood pressure with goal of decreasing no more than 20-30 mmHg in the next few hours - TTE ordered to evaluate for cardiac function, palpitations - will consider addition of 2.5 mg amlodipine if not reduced with home medication regimens 2. GERD vs. PUD vs. Gastritis - gastroenterology consulted, previously saw [facility] for colonoscopy 3 years ago - IV pepcid daily - zofran 4 mg IV Q6H for nausea - Heme test any stools Dvt ppx: low risk, SCDs, ambulation as tolerated GI ppx: NPO, pepcid Code status: Full Code (2) S/P hysterectomy: (3) GERD (gastroesophageal reflux disease): History of Present Illness Primary Care Provider: Kimmie Walters MD Patient is a 53-year-old female with a past medical history of hypertension and GERD who presented to her primary care physician's office this morning. At the office she was found to have elevated blood pressures with systolic at 220 and was experiencing intermittent blurring of vision as well as nausea. The patient has not been taking her blood pressure medications for the past 6 months. At this point patient was directed to the hospital for direct admission. Discussion with the patient this morning she says that she has been unable to take her blood pressure medications for the past 6 months due to severe nausea and vomiting that happens after she tries to take them. She attest that this nausea and vomiting also occurs after she has spicy foods, caffeine, and has woken her up in the middle of the night. The nighttime emesis is marked by abdominal cramping that is relieved after the episode of emesis. She does not have any abdominal pain during the day. she states that this nausea and vomiting is also brought on by any medications that are not enterically coated. Notes that aspirin and naproxen also makes the symptoms worse. Denies any hematemesis, hematochezia. Has had loose stools since her gallbladder has been taken out but denies any bright red blood in the stool, pain with bowel movements, melanotic stools. In regards to her blood pressure she says that she does have one-sided intermittent headaches that last few hours, intermittent blurring of vision that lasts a few seconds, but denies any weakness, numbness, tingling that have occurred with any of these episodes. Has never had a stroke or myocardial infarction. Family history of hypertension in her mother and multiple other family members. Is unsure if other family members have also had either stroke or RI. Patient reports last echo was 4 years ago wherein she was told that she had a thickening of her heart muscle secondary to her uncontrolled high blood pressure. She notes that she does occasionally feel palpitations and increase in heart rate however she attributes this to her postmenopausal symptoms that started after her hysterectomy. Denies any episodes of an abnormal heart rhythm, skipped beats, fast heart rate that does not go away after a couple of seconds, no chest pain. Allergies Allergy/AdvReac Type Severity Reaction Status Date / Time latex Allergy Unknown RASH Verified 05/03/17 11:55 WEARING LATEX GLOVES No Known Drug Allergies Allergy Unknown NONE Verified 01/19/17 10:26 Home Medications Home Medications Medication Instructions Recorded Confirmed Type Metoprolol Tartrate (Lopressor) 25 mg PO BID #0 tab 01/17/17 History (Lopressor) Naproxen (Naprosyn) 500 mg PO BID PRN #0 tab 01/17/17 History AZELASTINE HCL-FLUTICASONE PRO 1 spry ELFEGO BID #0 05/03/17 History (DYMISTA) Albuterol Sulfate (Proventil Hfa) 2 puff INHALATION BID PRN #0 05/03/17 History LOSARTAN POTASSIUM (COZAAR) 1 tab PO DAILY 30 Days #30 tab 05/03/17 Rx MONTELUKAST SODIUM (SINGULAIR) 1 tab PO DAILY #0 05/03/17 History Past Med/Surg History Surgical History S/P appendectomy S/P section (Resolved) S/P cholecystectomy (Resolved) S/P hysterectomy (Resolved) Family History Mother Hypertension Social History Preferred Language: Moldovan Communication Ability: Effective Signal Engineer Required: No Beliefs That Will Affect Care: None Current Living Situation: Alone Feels Safe at Home: Yes Safety Concerns: Feels Safe At This Time Smoking Status: Never smoker Hx Alcohol Use: Yes Alcohol type: beer and wine Hx Substance Use: No Review of Systems Constitutional: + sweats (night sweats); no fever, no chills, no body aches, no fatigue and no weight loss Eyes: as per Subjective / HPI Ear, Nose, Mouth, Throat: no nasal congestion Respiratory: no cough, no dyspnea and no pain on inspiration Cardiovascular: + palpitations; no chest pain, no dyspnea, no lightheadedness and no edema Gastrointestinal: + heartburn, + nausea, + vomiting, + cramping and + diarrhea/loose stools; no abdominal pain, no hematemesis, no pain with swallowing, no blood in stools and no melena Genitourinary: no dysuria Musculoskeletal: + joint pain (chronic arthritis); no body aches Neurologic: + headache(s); no unsteadiness, no generalized weakness, no tingling, no numbness and no dizziness Endocrine: + flushing Physical Exam Constitutional: well developed, well nourished and healthy appearing; no acute distress and not ill appearing Eyes: PERRL, conjunctivae normal, anicteric sclerae EOM intact bilaterally ENMT: Mouth: no oral mucosal abnormality and no tongue abnormality Throat: uvula midline Respiratory: normal respiratory effort, lungs clear to auscultation normal respiratory effort; no cough Auscultation: no crackles, no rhonchi and no wheezes Cardiovascular: RRR, no murmur, no edema Heart Sounds: no gallop, no murmur and no cardiac rub Extremities: no calf tenderness Gastrointestinal (Abdomen): normal bowel sounds, soft, nontender, no hepatosplenomegaly Inspection/Auscultation: abdomen not distended Percussion/Palpation: no guarding and abdomen not rigid Skin: normal turgor Neurologic: PERRL, EOMI, accommodation nl, no face palsy, no dysarthria normal touch/pain/proprioception and moves all extremities; no focal motor deficits Psychiatric: A+Ox3, euthymic affect Results & Data Vital Signs (Past 12 Hours) Vital Signs Pulse 09/18/19 09:40 64 Code Status & VTE Plan VTE Prophylaxis Plan VTE Prophylaxis will be ordered: No Supervising Physician Co-Signing Physician Notes I saw the patient with the resident physician and confirmed walsh portions the history and physical examination. Agree with the impression and plan as noted above. Upon examination, the patient was lying supine in bed. Patient reports her abdominal pain is much better. Patient states that she does not want to try amlodipine any longer due to her history of lower extremity edema. She states she has tried this medication at least twice and both times caused severe swelling that affected her ability to live on with her life. She also states that she thinks she has a GI issue as she gets nausea from her medication. She states her nausea improved with the famotidine and zofran. Vitals are stable except for elevated BP. Systolic above 200. Alert and oriented. Heart regular; lungs clear. Abdomen is NT/ND, soft Hypertensive urgency BP appears to slightly improve with the implementation of her regular medicine Given that she has nausea and sometimes vomits her medication, I am concerned about rebound hypertension if she initiates hydralazine or clonidine orally. She did take a one time dose of iV hydralazine today with a mild decrease of her BP. At this this point, will hold off starting norvasc, even though a combination of an ARB and low dose amlodipine taken at different times may improve the leg swelling effect. Patient refused amlodipine and wont continue to force this issue. Will start clonidine TD. This should bypass her issue with her nausea and vomiting. Will slowly titrate up. GI wants to do an EGD tomorrow as well. Perhaps once her BP is better controlled, may consider titrating savi her ARB if possible. Also was curious about switching her ARB to 2 doses, as she may tolerate this. Also may consider switching to night time dose as recent studies have shown better BP control when medications taken at night. Resident Activity Tracking Resident Involvement: Resident Care Provided Care Provided: Adult Hospital Medicine
[2019-09-18 10:41] LABS: Basophils # (auto) 0.02 K/uL (0-0.2); Basophils % (auto) 0.3 %; Eosinophils # (auto) 0.39 K/uL (0-0.5); Eosinophils % (auto) 5.7 %; Hematocrit (blood only) 37.4 % (37-47); Hemoglobin 12.8 g/dL (12.0-16.0); Immature Granulocytes # (auto) 0.02 K/uL (0.00-0.02); Immature Granulocytes % (auto) 0.3 %; Lymphocytes # (auto) 1.64 K/uL (1.2-3.4); Mean Corpuscular Hemoglobin 31.1 pg (25-34); Mean Corpuscular Hgb Conc 34.2 g/dL (32-36); Mean Corpuscular Volume 90.8 fL (80-100); Mean Platelet Volume 10.3 fL (7.4-10.4); Monocytes # (auto) 0.42 K/uL (0.11-0.59); Monocytes % (auto) 6.2 %; Neutrophils # (auto) 4.33 K/uL (1.4-6.5); Neutrophils % (auto) 63.5 %; Platelet Count 366 K/uL (130-400); RDW Coefficient of Variation 13.4 % (11.5-14.5); RDW Standard Deviation 44.5 fL (36.4-46.3); Red Blood Count 4.12 M/uL (4.2-5.4); White Blood Count 6.82 K/uL (4.8-10.8)
[2019-09-18 10:58] LABS: Alanine Aminotransferase 13 U/L (12-78); Albumin Level 3.7 gm/dl (3.4-5.0); Aspartate Aminotransferase 20 U/L (15-37); BUN Creatinine Ratio 11.8 (10-20); Blood Urea Nitrogen 12 mg/dl (7-18); Calcium 9.4 mg/dl (8.5-10.1); Carbon Dioxide 29 mmol/L (21-32); Chloride 104 mmol/L (98-107); Est GFR (African American) 71.4; Est GFR (Non-African American) 61.6; Glucose 89 mg/dl (70-99); Sodium 141 mmol/L (136-145)
[2019-09-18 11:00] LABS: Albumin Globulin Ratio 0.8 (0.9-2); Alkaline Phosphatase 97 U/L (45-117); Bilirubin,Total 0.2 mg/dl (0.2-1); Globulin 4.5 gm/dl (2.5-4.0); Total Protein 8.2 gm/dl (6.4-8.2)
[2019-09-18] MEDS ORDERED: FAMOTIDINE 20 MG in SYRINGE 3 ML IV ONE (11:00)
[2019-09-18] MEDS: TRIAMTERENE/HCTZ 37.5/25MG CAP PO SCH (11:09)
[2019-09-18] MEDS: LOSARTAN POTASSIUM 50 MG TAB PO SCH (11:09)
[2019-09-18] MEDS ORDERED: HydrALAZINE HCL 20 MG/ML VIAL IV ONE (13:15)
[2019-09-18] MEDS ORDERED: Nursing to Pharmacy Communication ONE (14:09)
[2019-09-18 14:22] LABS: Creatinine Urine Random 40.1 mg/dl
[2019-09-18] MEDS ORDERED: SODIUM CHLORIDE 0.65% NA SOLN 45 ML (OCEAN) PRN (14:31)
[2019-09-18 14:33] LABS: Microalbumin Creatinine Ratio 239.2 mcg/mg (0-30); Microalbumin Urine 95.9 mg/L
[2019-09-18] MEDS: POTASSIUM CHLORIDE / WTR 10 MEQ/100 ML PLCT IV SCH ×4 (14:51→19:01)
--- NOTE | 2019-09-18 15:49 | XCELERA ---
[id number] [id number]
--- NOTE | 2019-09-18 15:53 | Gastrointestinal Consultation ---
Date of Consultation September 18, 2019 Assessment & Plan (1) Nausea and vomiting: This seems precipitated by acidic and spicy food or BP meds. Start protonix 40 mg po bid. Plan EGD tomorrow approx 1500 if BP is under acceptable control by then. Proc and risks explained to patient which include but not limited to med reaction, bleeding, perforation, aspiration, and missed lesions. Pt hungry so ordered diet and then NPO post MN. HTN--per primary team. History of Present Illness Reason for Consultation: PUD vs gastritis Requesting Physician: DR Mary Cohn Attending Physician: Wilner Duncan History of Present Illness CC nausea and vomiting HPI Reviewed this EMR and [facility] EMR. Pt states for last 6 months she has had n/v with spicy and acidic foods and with BP meds. If eats bland foods and does not taker her BP meds she feels fine NO weight loss. No acid reducing agents tried by patient. Looser since GB surgery several years ago. Noted colonoscopy by DR Kellogg 01/2017 for diarrhea with hyperplastic rectal polyp removed and random colon bx negative. Pt presented to her PCP DR Walters today and was noted to have hyptertensive emergency with headach and blurring of visin with BP 200/124. She was admitted for control of HTN. Allergies Allergy/AdvReac Type Severity Reaction Status Date / Time latex Allergy Unknown RASH Verified 05/03/17 11:55 WEARING LATEX GLOVES No Known Drug Allergies Allergy Unknown NONE Verified 01/19/17 10:26 Home Medications Home Medications Medication Instructions Recorded Confirmed Type Metoprolol Tartrate (Lopressor) 25 mg PO BID #0 tab 01/17/17 History (Lopressor) Naproxen (Naprosyn) 500 mg PO BID PRN #0 tab 01/17/17 History AZELASTINE HCL-FLUTICASONE PRO 1 spry ELFEGO BID #0 05/03/17 History (DYMISTA) Albuterol Sulfate (Proventil Hfa) 2 puff INHALATION BID PRN #0 05/03/17 History LOSARTAN POTASSIUM (COZAAR) 1 tab PO DAILY 30 Days #30 tab 05/03/17 Rx MONTELUKAST SODIUM (SINGULAIR) 1 tab PO DAILY #0 05/03/17 History Patient History Surgical History S/P appendectomy S/P section (Resolved) S/P cholecystectomy (Resolved) S/P hysterectomy (Resolved) Family History Mother Hypertension Social History Preferred Language: Maltese Communication Ability: Effective Checking Department Supervisor Required: No Beliefs That Will Affect Care: None Current Living Situation: Alone Feels Safe at Home: Yes Safety Concerns: Feels Safe At This Time Smoking Status: Never smoker Hx Alcohol Use: Yes Alcohol type: beer and wine Hx Substance Use: No Review of Systems Review of Systems: All systems reviewed & are unremarkable except as noted in HPI & below Physical Exam Constitutional: WD/WN, vitals as above Eyes: PERRL, conjunctivae normal, anicteric sclerae ENMT: external ear and nose normal, oropharynx normal Neck: normal visual inspection and trachea midline Respiratory: normal respiratory effort, lungs clear to auscultation Cardiovascular: RRR, no murmur, no edema Gastrointestinal (Abdomen): normal bowel sounds, soft, nontender, no hepatosplenomegaly Neurologic: PERRL, EOMI, accommodation nl, no face palsy, no dysarthria Psychiatric: A+Ox3, euthymic affect Results & Data ([facility]) Vital Signs (Past 12 Hours) Vital Signs Temp Pulse Pulse Resp BP Pulse Ox 09/18/19 15:18 77 09/18/19 14:07 209/106 H 09/18/19 12:17 237/122 H 09/18/19 11:28 36.8 C 56 L 16 223/123 H 99 09/18/19 10:33 18 227/121 H 98 09/18/19 09:40 64
[2019-09-18] MEDS ORDERED: cloNIDine HCL 0.1 MG/24 HR TRANSDERM SYS TD SCH (17:15)
[2019-09-18] MEDS: PANTOprazole 40 MG TAB PO SCH (20:21)
[2019-09-18] MEDS ORDERED: AMLODIPINE BESYLATE 5 MG TAB PO SCH (21:00)
[2019-09-18] MEDS: CHECK CLONIDINE PATCH PLACEMENT SCH (23:19)
--- NOTE | 2019-09-19 07:05 | Billing Data ---
Date of Service September 18, 2019 Coding Level of Care Code 01554 Subseq Obs Care Lvl 3 Time Spent (min) 60
[2019-09-19 08:01] LABS: BUN Creatinine Ratio 12.3 (10-20); Blood Urea Nitrogen 14 mg/dl (7-18); Calcium 9.5 mg/dl (8.5-10.1); Carbon Dioxide 29 mmol/L (21-32); Chloride 105 mmol/L (98-107); Est GFR (African American) 62.5; Est GFR (Non-African American) 53.9; Glucose 93 mg/dl (70-99); Potassium 3.6 mmol/L (3.5-5.1); Sodium 138 mmol/L (136-145)
[2019-09-19 08:04] LABS: Troponin I < 0.015 ng/ml (0-0.045)
[2019-09-19] MEDS: TRIAMTERENE/HCTZ 37.5/25MG CAP PO SCH (09:03)
[2019-09-19] MEDS: LOSARTAN POTASSIUM 50 MG TAB PO SCH (09:03)
[2019-09-19] MEDS: VORTIOXETINE HYDROBROMIDE PO SCH (09:03)
[2019-09-19] MEDS: PANTOprazole 40 MG TAB PO SCH ×3 (09:04→22:29)
[2019-09-19] MEDS: CHECK CLONIDINE PATCH PLACEMENT SCH ×2 (09:04→16:26)
[2019-09-19] MEDS: HydrALAZINE HCL 20 MG/ML VIAL IV PRN (11:43)
--- NOTE | 2019-09-19 11:49 | Anesthesiology Consultation ---
Date of Service September 19, 2019 Assessment & Plan Chart Review Patient admitted with hypertensive emergency. She continues to have uncontrolled blood pressures of >200/124 despite multiple doses of !V Hydralazine on the floor. Therefore, her EGD for abdominal discomfort is cancelled until better blood pressure control is achieved. Dr. Brooks is aware. History Surgery Operation Date: 09/19/19 16:00 Proposed Procedures p Esophagogastroduodenoscopy Dr Brooks - Mayito Brooks Height/Weight Weight: 70.5 kg Allergies Allergy/AdvReac Type Severity Reaction Status Date / Time latex Allergy Unknown RASH Verified 05/03/17 11:55 WEARING LATEX GLOVES No Known Drug Allergies Allergy Unknown NONE Verified 01/19/17 10:26 Medications Home Medications Medication Instructions Recorded Confirmed Last Taken Metoprolol Tartrate (Lopressor) 25 mg PO BID #0 tab 01/17/17 Unknown (Lopressor) Naproxen (Naprosyn) 500 mg PO BID PRN #0 tab 01/17/17 Unknown AZELASTINE HCL-FLUTICASONE PRO 1 spry ELFEGO BID #0 05/03/17 Unknown (DYMISTA) Albuterol Sulfate (Proventil Hfa) 2 puff INHALATION BID PRN #0 05/03/17 Unknown LOSARTAN POTASSIUM (COZAAR) 1 tab PO DAILY 30 Days #30 tab 05/03/17 Unknown MONTELUKAST SODIUM (SINGULAIR) 1 tab PO DAILY #0 05/03/17 Unknown Active Medications Generic Name Dose Route Start Last Admin Trade Name Freq PRN Reason Stop Dose Admin Clonidine HCl 1 patch 09/18/19 17:15 09/18/19 18:05 [id number] 0.1mg/24hr TD 10/18/19 17:14 1 patch [id number] JUAN CARLOS Administration Hydralazine HCl 5 mg 09/19/19 10:12 09/19/19 11:43 Hydralazine Hcl IV 10/19/19 10:11 5 mg Q4H PRN Administration SBP > 180, DBP > 100 Sodium Chloride 1,000 mls @ 125 mls/hr 09/18/19 10:15 09/18/19 10:55 Nss 1000ml IV 10/18/19 10:14 0 mls/hr .Q8H JUAN CARLOS Infusion Losartan Potassium 100 mg 09/18/19 10:30 09/19/19 09:03 Cozaar PO 10/18/19 10:29 100 mg DAILY JUAN CARLOS Administration Miscellaneous 1 ea 09/19/19 00:00 09/19/19 09:04 Check Clonidine Patch N/A 10/19/19 00:00 1 ea QS JUAN CARLOS Administration Ondansetron HCl 4 mg 09/18/19 10:02 09/18/19 11:06 Zofran IV 10/18/19 10:01 4 mg Q6H PRN Administration Nausea Pantoprazole Sodium 40 mg 09/18/19 21:00 09/19/19 09:04 Protonix PO 09/22/19 09:01 40 mg BID JUAN CARLOS Administration Triamterene/HCTZ 2 cap 09/18/19 10:30 09/19/19 09:03 Dyazide 37.5/25mg PO 10/18/19 10:29 2 cap QAM JUAN CARLOS Administration Vortioxetine 1 ea 09/19/19 09:00 09/19/19 09:03 Trintellix PO 10/19/19 08:59 1 ea QAM JUAN CARLOS Administration Past Family History Family History Mother Hypertension Past Surgical History Surgical History S/P appendectomy S/P section (Resolved) S/P cholecystectomy (Resolved) S/P hysterectomy (Resolved) Social History Smoking Status: Never smoker Hx Alcohol Use: Yes Alcohol type: beer and wine alcohol intake frequency: a few times a week Hx Substance Use: No Physical Exam Vital Signs Last Vital Signs Temp 36.8 C 09/19/19 11:59 Pulse 62 09/19/19 11:59 Resp 17 09/19/19 11:59 BP 198/121 H 09/19/19 11:59 Pulse Ox 98 09/19/19 11:59 Testing Laboratory Results 09/18/19 10:20 09/19/19 07:30
--- NOTE | 2019-09-19 12:37 | Hospitalist Progress Note ---
Date of Service September 19, 2019 Assessment & Plan (1) Hypertensive urgency: 53-year-old female with a history of hypertension and GERD admitted to the hospital for hypertensive urgency after being seen in the outpatient setting was elevated blood pressures and intermittent blurring of vision. 1. Hypertensive urgency - restarted on home medications of 100 mg losartan once a day, hydrochlorothiazidetriamterene 50 mg / 75 mg - IV hydralazine 5 mg Q4 PRN for BP sys >180, mariam >110 - clonidine patch - TTE showed EF 60%, LVH, no valvular abnormalities - patient had brief hypotensive episode after receiving ativan for agitation which paints a picture of more stress induced hypertension than essential HTN 2. GERD vs. PUD vs. Gastritis - unable to perform EGD today due to elevated blood pressures - IV pepcid daily - zofran 4 mg IV Q6H for nausea - Heme test any stools Dvt ppx: low risk, SCDs, ambulation as tolerated GI ppx: NPO, pepcid, protonix Code status: Full Code (2) S/P hysterectomy: (3) GERD (gastroesophageal reflux disease): Admission and Anticipated Discharge Date Admission Date: September 18, 2019 Supervising Physician Co-Signing Physician Notes I personally examined the patient and verified all walsh points of history and exam, discussed case, and agree with decision making with Dr Cohn. Feeling okay at the time I see herstill a little bit dizzy, but whenever she had gotten up to go to the bathroom she got very sweaty and then felt like she was going to faint. She fortunately did not have any true incident. In describing her nausea, she notes that probably in the neighborhood of 6 months ago she started having nausea and vomiting with uncoated pills. After that she has had difficulty keeping her blood pressure meds down, she notes actually the only medicine she can keep down well is her vortioxetine and she notes this is because it is a coated capsule. She notes the same thing happens with uncoated [id number]'s, and notes that after anything like red sauce she has pretty significant indigestion. She also notes her mother had stomach ulcers. Vitals noted, in general she is awake and alert fatigued but no distress. HEENT normocephalic atraumatic mucous membranes are moist. Breathing unlabored no accessory muscle use good effort. Skin shows no rashes no pallor or icterus. Neuro shows cranial nerves II through XII are grossly intact gross motor and sensory are intact. Hypertensive urgencyblood pressure had been refractory all day, and then improved quite dramatically after her Lorazepam, suggesting that at least in the acute inpatient setting there may be a rather significant anxiety component. Discussed this with the patient. In order to be able to get to the bottom of her nausea and vomiting, the EGD seems to be the next appropriate step, and we need better blood pressure control for the EGD. Given that Ativan seemed to show a significant improvement in her blood pressure, we will continue this at a lower dose (since 0.5 seemed to be rather sedating) at a quarter of a milligram every 6 hours as needed. Hopefully EGD tomorrow, in the meantime continue current blood pressure medicines otherwise. Given that she seems to have difficulty with uncoated pills, we can also work with pharmacy on what blood pressure medicines, is a coated capsule Nausea and vomitinguncoated pills as well as more acidic foods seem to be triggers. EGD once she is able, hopefully this will define the diagnosis, if not then we may need to consider motility issues, although this seems less likely. Otherwise as above. Subjective 53 yo F admitted for hypertensive urgency. This morning states she is no longer having intermittent blurring of vision, though she does have a left sided headache. She denies nausea, vomiting. Does feel fatigued and a little lightheaded, which she attributes to her blood pressure now being "low", while at the time her BP was 176/117. Review of Systems Constitutional: + fatigue; no fever, no chills and no body aches Eyes: no blind spots and no diplopia Respiratory: no cough and no dyspnea Cardiovascular: no chest pain, no dyspnea and no edema Gastrointestinal: no abdominal pain, no nausea, no vomiting, no constipation and no diarrhea/loose stools Genitourinary: no dysuria Neurologic: + dizziness and + headache(s); no unsteadiness, no generalized weakness, no tingling and no numbness Physical Exam Constitutional: well developed, well nourished and healthy appearing; no acute distress and not ill appearing Eyes: PERRL, conjunctivae normal, anicteric sclerae EOM intact bilaterally ENMT: Mouth: no oral mucosal abnormality and no tongue abnormality Throat: uvula midline Respiratory: normal respiratory effort, lungs clear to auscultation normal respiratory effort; no cough Auscultation: no crackles, no rhonchi and no wheezes Cardiovascular: RRR, no murmur, no edema Heart Sounds: no gallop, no murmur and no cardiac rub Extremities: no calf tenderness Gastrointestinal (Abdomen): normal bowel sounds, soft, nontender, no hepatosplenomegaly Inspection/Auscultation: abdomen not distended Percussion/Palpation: no guarding and abdomen not rigid Skin: normal turgor Neurologic: PERRL, EOMI, accommodation nl, no face palsy, no dysarthria normal touch/pain/proprioception and moves all extremities; no focal motor deficits Psychiatric: A+Ox3, euthymic affect Results & Data ([facility]) Vital Signs (Past 12 Hours) Vital Signs Temp Pulse Pulse Resp BP BP Pulse Ox 09/19/19 11:59 36.8 C 62 17 198/121 H 98 09/19/19 08:00 95 H 09/19/19 07:08 37 C 67 16 178/117 H 97 09/19/19 02:48 37 C 88 16 183/111 H 97 Vital Signs Temp Pulse Pulse Resp BP BP Pulse Ox 09/19/19 17:03 64 147/82 H 09/19/19 16:25 64 138/92 09/19/19 16:15 63 144/87 H 09/19/19 16:11 66 105/70 98 09/19/19 15:17 36.5 C 86 19 184/121 H 97 09/19/19 14:00 164/124 H 201/126 H 09/19/19 12:52 186/122 H 09/19/19 11:59 36.8 C 62 17 198/121 H 98 09/19/19 08:00 95 H 09/19/19 07:08 37 C 67 16 178/117 H 97 09/19/19 02:48 37 C 88 16 183/111 H 97 09/18/19 23:44 64 09/18/19 23:21 36.7 C 58 L 18 194/113 H 98 09/18/19 19:07 36.6 C 65 16 187/96 H 95 Intake and Output 09/19/19 09/19/19 09/19/19 06:59 14:59 22:59 Other: Other Intake Source Patient was NPO this shift. # Unmeasured Voids 1 Weight 70.5 kg 70.5 kg Patient Weight 09/20/19 06:59 Weight 70.5 kg 09/19/19 09/19/19 Range/Units 16:11 07:30 Sodium 138 (136-145) mmol/L Potassium 3.6 D (3.5-5.1) mmol/L Chloride 105 (98-107) mmol/L Carbon Dioxide 29 (21-32) mmol/L Anion Gap 5.0 (3-11) BUN 14 (7-18) mg/dl Creatinine 1.15 (0.6-1.2) mg/dl Est Cr Clr Drug Dosing Not Reportable Est GFR ( Amer) 62.5 Est GFR (Non-Af Amer) 53.9 BUN/Creatinine Ratio 12.3 (10-20) Glucose 93 (70-99) mg/dl POC Glucose 121 H (70-99) mg/dl Calcium 9.5 (8.5-10.1) mg/dl Troponin I < 0.015 (0-0.045) ng/ml Resident Activity Tracking Resident Involvement: Resident Care Provided Care Provided: Adult Hospital Medicine
[2019-09-19] MEDS ORDERED: HydrALAZINE HCL 20 MG/ML VIAL IV STA (13:55)
[2019-09-19] MEDS ORDERED: LORazepam 0.5 MG/1 ML VIAL IV STA (13:55)
[2019-09-19] MEDS ORDERED: PROPOFOL IV EMULSION 10 MG/ML 20 ML VIAL IV ONE (13:59)
[2019-09-19] MEDS ORDERED: LIDOCAINE HCL 2% 2 ML VIAL/AMP(20MG/ML) INFIL ONE (13:59)
--- NOTE | 2019-09-19 14:31 | Gastroenterology Progress Note ---
Date of Service September 19, 2019 Assessment & Plan (1) Nausea and vomiting: This seems precipitated by acidic and spicy food or BP meds. Continue PPI. Restart diet. Reschedule EGD for tomorrow 09/20/19. Diarrhea--new--follow--could be medication--Protonix can give diarrhea so if continues and no explanation will stop that. HTN--per primary team. Admission and Anticipated Discharge Date Admission Date: September 18, 2019 Subjective cc f/u n/v HPI Pt tolerated solid diet yesterday. Two loose stools today which is unusual. Some abd cramping. BP not controlled yet and so EGD cancelled. Physical Exam Constitutional: WD/WN, vitals as above Respiratory: normal respiratory effort, lungs clear to auscultation Cardiovascular: RRR, no murmur, no edema Gastrointestinal (Abdomen): normal bowel sounds, soft, nontender, no hepatosplenomegaly Results & Data ([facility]) Vital Signs (Past 12 Hours) Vital Signs Temp Pulse Pulse Resp BP BP Pulse Ox 09/19/19 14:00 164/124 H 201/126 H 09/19/19 11:59 36.8 C 62 17 198/121 H 98 09/19/19 08:00 95 H 09/19/19 07:08 37 C 67 16 178/117 H 97 09/19/19 02:48 37 C 88 16 183/111 H 97
[2019-09-19] MEDS ORDERED: TRINTELLIX: ORDER AWAITING ACTION SCH (16:00)
[2019-09-19] MEDS ORDERED: SODIUM CHLORIDE 0.9% 1000ML 500 ML IV ONE (16:13)
[2019-09-19] MEDS ORDERED: LORazepam 0.5 MG TAB PO PRN (18:40)
--- NOTE | 2019-09-19 18:44 | Billing Data ---
Date of Service September 19, 2019 Coding Level of Care Code 08260 Subseq Hosp Care Lvl 3
[2019-09-20] MEDS: CHECK CLONIDINE PATCH PLACEMENT SCH ×4 (00:15→23:49)
[2019-09-20 07:24] LABS: BUN Creatinine Ratio 16.6 (10-20); Blood Urea Nitrogen 20 mg/dl (7-18); Calcium 9.5 mg/dl (8.5-10.1); Carbon Dioxide 24 mmol/L (21-32); Chloride 108 mmol/L (98-107); Est GFR (African American) 60.6; Est GFR (Non-African American) 52.2; Glucose 103 mg/dl (70-99); Potassium 3.4 mmol/L (3.5-5.1); Sodium 138 mmol/L (136-145)
[2019-09-20] MEDS ORDERED: cloNIDine HCL 0.1 MG TAB PO PRN (07:53)
[2019-09-20] MEDS ORDERED: NSS + 20MEQ KCL 20 MEQ/1,000 ML BAG IV SCH (08:15)
[2019-09-20] MEDS: LOSARTAN POTASSIUM 50 MG TAB PO SCH (08:28)
[2019-09-20] MEDS: TRIAMTERENE/HCTZ 37.5/25MG CAP PO SCH (08:28)
[2019-09-20] MEDS: PANTOprazole 40 MG TAB PO SCH (08:28)
[2019-09-20] MEDS: VORTIOXETINE HYDROBROMIDE PO SCH (08:28)
[2019-09-20] MEDS: HydrALAZINE HCL 20 MG/ML VIAL IV PRN (11:47)
--- NOTE | 2019-09-20 15:11 | History & Physical Report ---
Date of Service September 20, 2019 Assessment & Plan (1) Nausea and vomiting: This seems precipitated by acidic and spicy food or BP meds. EGD today. Procedure and risks explained to patient which include but not limited to med reaction, bleeding, perforation, aspiration. Diarrhea--may be from protonix but not bothersome at present. Depending on findings of EGD may be able to change med or cut back on amount. HTN--per primary team. History of Present Illness Chief Complaint: cc f/u n/v Primary Care Provider: Kimmie Walters MD HPI Pt feeling well. Protonix giving her looser stools but only in am then done. Some mild abd cramping thsi am. Allergies Allergy/AdvReac Type Severity Reaction Status Date / Time latex Allergy Unknown RASH Verified 05/03/17 11:55 WEARING LATEX GLOVES No Known Drug Allergies Allergy Unknown NONE Verified 01/19/17 10:26 Home Medications Home Medications Medication Instructions Recorded Confirmed Type Metoprolol Tartrate (Lopressor) 25 mg PO BID #0 tab 01/17/17 History (Lopressor) Naproxen (Naprosyn) 500 mg PO BID PRN #0 tab 01/17/17 History AZELASTINE HCL-FLUTICASONE PRO 1 spry ELFEGO BID #0 05/03/17 History (DYMISTA) Albuterol Sulfate (Proventil Hfa) 2 puff INHALATION BID PRN #0 05/03/17 History LOSARTAN POTASSIUM (COZAAR) 1 tab PO DAILY 30 Days #30 tab 05/03/17 Rx MONTELUKAST SODIUM (SINGULAIR) 1 tab PO DAILY #0 05/03/17 History Past Med/Surg History Surgical History S/P appendectomy S/P section (Resolved) S/P cholecystectomy (Resolved) S/P hysterectomy (Resolved) Family History Mother Hypertension Social History Preferred Language: [place] Communication Ability: Effective Base Cloth Inspector Required: No Beliefs That Will Affect Care: None Current Living Situation: Alone Feels Safe at Home: Yes Smoking Status: Never smoker Hx Alcohol Use: Yes Alcohol type: beer and wine Hx Substance Use: No Physical Exam Constitutional: WD/WN, vitals as above Respiratory: normal respiratory effort, lungs clear to auscultation Cardiovascular: RRR, no murmur, no edema Gastrointestinal (Abdomen): normal bowel sounds, soft, nontender, no hepatosplenomegaly Results & Data Vital Signs (Past 12 Hours) Vital Signs Temp Pulse Pulse Resp BP Pulse Ox 09/20/19 11:20 36.9 C 64 16 156/106 H 98 09/20/19 07:55 66 09/20/19 07:10 36.8 C 70 19 157/106 H 97 09/20/19 05:10 36.9 C 73 20 157/101 H 97 Code Status & VTE Plan VTE Prophylaxis Plan VTE Prophylaxis will be ordered: No
--- NOTE | 2019-09-20 15:33 | GI REPORT ---
Patient Name: Eli Quintana Procedure Date: 09/20/2019 3:16 PM Date of : 1965 Admit Type: Inpatient Age: 53 Gender: Female Attending MD: Mayito Brooks MD Procedure: Upper GI endoscopy Providers: Mayito Brooks MD Referring MD: Wilner Duncan M.d., Marc Alvarenga Indications: Nausea with vomiting Medicines: Monitored Anesthesia Care Complications: No immediate complications. Estimated blood loss: Minimal. Estimated Blood Loss: Estimated blood loss was minimal. Procedure: Pre-Anesthesia Assessment: - The risks and benefits of the procedure and the sedation options and risks were discussed with the patient. All questions were answered and informed consent was obtained. - Patient identification and proposed procedure were verified prior to the procedure by the physician, the nurse and the nursing clerk. The procedure was verified in the procedure room. After obtaining informed consent, the endoscope was passed under direct vision. Throughout the procedure, the patient's blood pressure, pulse, and oxygen saturations were monitored continuously. The scope was introduced through the mouth, and advanced to the second part of duodenum. The upper GI endoscopy was accomplished without difficulty. The patient tolerated the procedure well. Procedure and risks explained to patient which include but not limited to medication reaction, bleeding, perforation, aspiration , and missed lesions. Judicious gas insufflation was used and gas removal done on the way out. The lumen was always visualized when advancing the scope. Prep was good. Washes and suctioning used as needed to get good visualization of the mucosa. Retroflexion to look at the fundus and cardia of the stomach and GE junction was done. Findings: The Z-line was regular and was found 39 cm from the incisors. The esophagus was normal. The gastric antrum was normal. Biopsies were taken with a cold forceps for Helicobacter pylori testing. Estimated blood loss was minimal. The second portion of the duodenum was normal. Biopsies for histology were taken with a cold forceps for evaluation of celiac disease. Estimated blood loss was minimal. The exam was otherwise without abnormality. Impression: - Z-line regular, 39 cm from the incisors. - Normal esophagus. - Normal antrum. Biopsied. - Normal second portion of the duodenum. Biopsied. - The examination was otherwise normal. Recommendation: - Return patient to [facility] for possible discharge same day. - Await pathology results. Mayito Brooks M.D. Mayito Brooks MD 09/20/2019 3:32:43 PM This report has been signed electronically. Note Initiated On: 09/20/2019 3:16 PM Number of Addenda: 0 I attest to the content of the Intraoperative Record and orders documented therein, exceptions below {[id number]}
--- NOTE | 2019-09-20 15:42 | Post Operative Brief Note ---
Immediate Post Op Note v1 Date of Surgery September 20, 2019 Pre & Post Diagnosis Operation Date: 09/20/19 17:00 Pre-Op Diagnosis: NAUSEA, Vomitting Post-Op Diagnosis: Normal Findings I identified the patient and participated in the time-out.: Yes Procedure Operation Date: 09/20/19 17:00 Actual Procedures p EGD Biopsy Cytology - Mayito Brooks Surgeon Mayito Brooks Radio Program Checker see report Estimated Blood Loss 2 Findings See Below Normal exam. Random antrum bx for H.pylori and random 2nd duod for celiac sprure. She could still have some GERD without mucosal disease. Continue Protonix but at once daily. If has continued GI issues consider CT a/p. Discussed with Dr Alvarenga and agree with brain imaging to rule out n/v from central process. Regular diet.
--- NOTE | 2019-09-20 15:51 | Anesthesiology Progress Note ---
Date of Service September 20, 2019 Anesthesia Post Procedure Vital Signs Vital Signs: Temp Pulse Pulse Resp BP BP Pulse Ox 09/20/19 15:34 86 16 126/84 97 09/20/19 15:32 72 09/20/19 15:09 36.7 C 79 16 171/103 H 96 09/20/19 11:20 36.9 C 64 16 156/106 H 98 09/20/19 07:55 66 09/20/19 07:10 36.8 C 70 19 157/106 H 97 09/20/19 05:10 36.9 C 73 20 157/101 H 97 09/20/19 00:00 69 09/19/19 23:20 36.9 C 67 20 158/105 H 99 09/19/19 19:17 36.8 C 90 16 128/84 97 09/19/19 17:03 64 147/82 H 09/19/19 16:25 64 138/92 09/19/19 16:15 63 144/87 H 09/19/19 16:11 66 105/70 98 09/19/19 16:00 91 H Transfer of Care Handoff Completed per policy Notes Mental Status: alert / awake / arousable and participated in evaluation Patient Amnestic to Procedure: Yes Nausea / Vomiting: adequately controlled Pain: adequately controlled Airway Patency, RR, SpO2: stable & adequate BP & HR: stable & adequate Hydration State: stable & adequate Anesthetic Complications: no major complications apparent and Pt Satisfied with anesthetic care
[2019-09-20] MEDS ORDERED: PROPOFOL IV EMULSION 10 MG/ML 20 ML VIAL IV ONE (16:17)
[2019-09-20] MEDS ORDERED: LIDOCAINE HCL 2% 2 ML VIAL/AMP(20MG/ML) INFIL ONE (16:17)
--- NOTE | 2019-09-20 16:27 | Hospitalist Progress Note ---
Date of Service September 20, 2019 Assessment & Plan (1) Hypertensive urgency: Presented with markedly elevated blood pressure and blurred vision. Blood pressures are now erratic but overall better controlled than whenever she first arrived. Continue to titrate medications as possible. Her nausea and vomiting is precluding blood pressure management in her inability to tolerate many medications. (2) Nausea and vomiting: Await EGD, consider wider work-up if EGD does not show cause (3) GERD (gastroesophageal reflux disease): Continue Protonix (4) DVT prophylaxis: Ambulation (5) Hypertension: Continue to titrate medications for better control. Acutely it does appear that stress/anxiety is playing a bit of a role, given how much her blood pressure seems to have responded to Ativan yesterday. Once she is doing better with her nausea and vomiting, hopefully she will be able to tolerate medications for an easier management of her blood pressure. Does show a degree of hypertensive nephropathy and hypertensive cardiomyopathy at baseline based on her urine microalbumin and her echo. (6) Discharge planning issues: Continue on telemetry given the erratic and sometimes extreme swings in her blood pressure, will need to continue to keep her in the hospital until she is able to tolerate p.o. including her blood pressure medicines for some degree of reliable control. I do anticipate her being able to go home with outpatient follow-up once all of the above has been achieved. Admission and Anticipated Discharge Date Admission Date: September 18, 2019 Subjective Feeling about the same. No new complaints. Awaiting EGD. Has been n.p.o., therefore has not had nausea or vomiting. Fairly uneventful night. No other HPI review of systems of significance today Review of Systems Review of Systems: All systems reviewed & are unremarkable except as noted in HPI & below Physical Exam Physical Exam: General she is awake and alert pleasant no distress. HEENT normocephalic atraumatic mucous membranes moist. Breathing is unlabored no accessory muscle use good effort. Skin shows no rashes no pallor or icterus. Neuro shows cranial nerves II through XII be grossly intact gross motor and sensory intact. Mental status shows good recent and remote recall normal mood and affect good judgment and insight. Results & Data ([facility]) Vital Signs (Past 12 Hours) Vital Signs Temp Pulse Pulse Resp BP Pulse Ox 09/20/19 15:45 80 16 125/85 97 09/20/19 15:34 86 16 126/84 97 09/20/19 15:32 72 09/20/19 15:09 98.1 F 79 16 171/103 H 96 09/20/19 11:20 98.4 F 64 16 156/106 H 98 09/20/19 07:55 66 09/20/19 07:10 98.2 F 70 19 157/106 H 97 09/20/19 05:10 98.4 F 73 20 157/101 H 97 PG Care Time/CCT Total # of Minutes Spent Total Time Spent with Patient: Total time spent is greater than 50% in coordination of care (as documented) at patient's floor/unit and/or counseling patient: Coding Level of Care Code 09100 Subseq Hosp Care Lvl 3 Diagnoses Hypertensive urgency I16.0 Nausea and vomiting R11.2 GERD (gastroesophageal reflux disease) K21.9 DVT prophylaxis Z29.9 Hypertension I10 Discharge planning issues Z02.9
--- NOTE | 2019-09-20 17:32 | Electrocardiogram Report ---
Test Reason : Blood Pressure : / mmHG Vent. Rate : 063 BPM Atrial Rate : 063 BPM P-R Int : 188 ms QRS Dur : 100 ms QT Int : 466 ms P-R-T Axes : 035 010 055 degrees QTc Int : 476 ms Normal sinus rhythm Voltage criteria for left ventricular hypertrophy with repolarization abnormality Nonspecific T wave abnormality Prolonged QT Abnormal ECG When compared with ECG of 03-MAY-2017 11:19, Questionable change in QRS axis QT has lengthened Nonspecific T wave abnormality now evident in Inferior leads Inverted T waves have replaced nonspecific T wave abnormality in Lateral leads Confirmed by Gamaliel Treviño ([id number]) on 09/20/2019 5:32:40 PM Referred By: Wilner Duncan Confirmed By:Gamaliel Treviño
[2019-09-20] MEDS ORDERED: IOVERSOL 100ml IV PRN (19:10)
--- NOTE | 2019-09-20 19:44 | CT Scan Report ---
ABDOMEN AND PELVIS CT WITH IV AND ORAL CONTRAST CT DOSE: 432.13 mGy.cm HISTORY: Acute nausea and vomiting ongoing nausea and vomiting TECHNIQUE: Multiaxial CT images of the abdomen and pelvis were performed following the IV administrat ion of 95 cc of Optiray 320 and oral contrast. A dose lowering technique was utilized adhering to th e principles of ALARA. COMPARISON STUDY: CT abdomen and pelvis 09/29/2016 FINDINGS: Clear lung bases. There is no pneumatosis or pneumoperitoneum. The imaged inferior cardiac chambers a re unremarkable. Spleen, pancreas, adrenal glands and liver appear unremarkable. Cholecystectomy. Mil d dilation of the common bile duct measuring 7 mm likely on a postsurgical basis. Patency of the hepa tic and portal veins. Kidneys and ureters appear unremarkable. Mildly decompressed urinary bladder. H ysterectomy. No adnexal mass lesions.. Aorta appears unremarkable without aneurysm. Mild flattening o f the IVC. No adenopathy. No bowel obstruction, bowel wall thickening, ascites or mesenteric stranding. The terminal ileum is u nremarkable. Prior appendectomy. Diastases recti with small left paracentral periumbilical hernia, di astases 1.7 cm. Degenerative changes are noted within the spine and SI joints. Sclerosis there is scl erosis of the SI joints with marginal osteophytic spurring and joint space narrowing. Additionally, t here is mild erosions within the subcortical distributions. IMPRESSION: 1. No bowel obstruction or bowel wall thickening. 2. Prior cholecystectomy, hysterectomy and appendectomy. 3. Small fat filled ventral abdominal wall hernia. 4. Symmetric sacroiliitis. ACT 112: Negative or not required by law. The above report was generated using voice recognition software. It may contain grammatical, syntax o r spelling errors. Results electronically sent 09/20/2019 7:42 PM to: Marc Alvarenga DO Electronically signed by: Adam Pagan M.D. 09/20/2019 7:42 PM
--- NOTE | 2019-09-20 19:49 | Magnetic Resonance Report ---
MR brain wo con HISTORY: 53 years-old Female uncontrolled hypertension and nausea, eval ? mass acute hypertension wi th nausea COMPARISON: Head CT 09/27/2016 TECHNIQUE: Multiplanar multisequence MRI of the brain was obtained without the use of IV contrast FINDINGS: Nuclear Auxiliary Operator localizer images demonstrate no gross extracranial abnormality. There is no restricted diffusio n to suggest acute or subacute infarct. Midline structures including the corpus callosum, brainstem, optic chiasm, pituitary and pineal glands appear unremarkable on the sagittal T1 series. No cerebella r tonsillar herniation. Mild degenerative changes of the imaged cervical spine. Extensive T2/FLAIR hyperintensities are noted throughout the white matter involving the subcortical, deep and periventricular distributions. There is no acute intracranial hemorrhage, midline shift, abn ormal extra axial collection, hydrocephalus or intracranial mass identified. Major vascular flow void s appear patent and unremarkable. Mastoid air cells are clear. Mild mucosal thickening of the maxilla ry, ethmoid and frontal sinuses. Skull, orbits and soft tissues are within normal limits. IMPRESSION: 1. No acute intracranial abnormality identified. 2. Extensive T2/FLAIR hyperintensities throughout the white matter are nonspecific. With clinical his tory of hypertension, these findings are likely related to chronic microvascular ischemic disease. A demyelinating process such as multiple sclerosis could appear similarly. ACT 112: Negative or not required by law. The above report was generated using voice recognition software. It may contain grammatical, syntax o r spelling errors. Results electronically sent 09/20/2019 7:48 PM to: Marc Alvarenga DO Electronically signed by: Adam Pagan M.D. 09/20/2019 7:48 PM
[2019-09-21 03:27] VITALS: TEMP 97.9
[2019-09-21 06:52] LABS: BUN Creatinine Ratio 18.5 (10-20); Calcium 9.9 mg/dl (8.5-10.1); Creatinine Clr Calc Pharmacy 45.3 ml/min; Est GFR (African American) 52.4; Est GFR (Non-African American) 45.2; Potassium 3.4 mmol/L (3.5-5.1)
[2019-09-21] MEDS ORDERED: ONDANSETRON 4 MG OD TAB PO PRN (07:22)
[2019-09-21] MEDS: LOSARTAN POTASSIUM 50 MG TAB PO SCH (08:08)
[2019-09-21] MEDS: VORTIOXETINE HYDROBROMIDE PO SCH (08:11)
[2019-09-21] MEDS: TRIAMTERENE/HCTZ 37.5/25MG CAP PO SCH (08:11)
[2019-09-21] MEDS: CHECK CLONIDINE PATCH PLACEMENT SCH (08:13)
--- NOTE | 2019-09-21 08:26 | Anesthesiology Progress Note ---
Date of Service September 21, 2019 Anesthesia Post Procedure Vital Signs Vital Signs: Temp Pulse Pulse Resp BP BP Pulse Ox 09/21/19 06:57 36.6 C 78 18 136/84 96 09/21/19 03:25 36.6 C 69 16 120/79 97 09/21/19 01:00 70 09/21/19 00:01 36.7 C 74 18 124/82 97 09/20/19 20:00 36.7 C 75 18 148/95 H 96 09/20/19 16:58 84 18 159/100 H 99 09/20/19 16:06 71 16 154/106 H 97 09/20/19 15:45 80 16 125/85 97 09/20/19 15:34 86 16 126/84 97 09/20/19 15:32 72 09/20/19 15:09 36.7 C 79 16 171/103 H 96 09/20/19 11:20 36.9 C 64 16 156/106 H 98 Notes Mental Status: alert / awake / arousable and participated in evaluation Patient Amnestic to Procedure: Yes Nausea / Vomiting: adequately controlled Pain: adequately controlled Airway Patency, RR, SpO2: stable & adequate BP & HR: stable & adequate Hydration State: stable & adequate Anesthetic Complications: no major complications apparent and Pt Satisfied with anesthetic care
[2019-09-21] MEDS ORDERED: PANTOprazole 40 MG TAB PO SCH (09:00)
--- NOTE | 2019-09-21 09:30 | Hospitalist Progress Note ---
Date of Service September 21, 2019 Assessment & Plan (1) Hypertensive urgency: 53-year-old female with a history of hypertension and GERD admitted to the hospital for hypertensive urgency after being seen in the outpatient setting was elevated blood pressures and intermittent blurring of vision. 1. Hypertensive urgency - restarted on home medications of 100 mg losartan once a day, hydrochlorothiazidetriamterene 50 mg / 75 mg - IV hydralazine 5 mg Q4 PRN for BP sys >180, mariam >110 - clonidine patch - TTE showed EF 60%, LVH, no valvular abnormalities - patient had brief hypotensive episode after receiving ativan for agitation which paints a picture of more stress induced hypertension than essential HTN - MRI Brain showed no mass lesions or acute intracranial abnormalities; Extensive T2/Flair hyperintensities in white matter noted as nonspecific. Likely chronic microvascular ischemic disease vs. demyelinating process such as multiple sclerosis. Given HX uncontrolled HTN and lack of hx of weakness, tingling, numbness, motor dysfunction less likely MS but will note for PCP to follow up in outpatient setting and monitor for symptoms. 2. Nausea - EGD negative for acute disease - symptoms likely secondary to elevated BP as patient hasn't experienced nausea with BP control in hospital Dvt ppx: low risk, SCDs, ambulation as tolerated GI ppx:regular diet Code status: Full Code Dispo: Home (2) S/P hysterectomy: (3) GERD (gastroesophageal reflux disease): Admission and Anticipated Discharge Date Admission Date: September 18, 2019 Supervising Physician Co-Signing Physician Notes Patient seen and examined with Dr. Cohn. I agree with their exam findings, review of systems, assessment and plan. I have personally reviewed the lab work and imaging from today. see the d/c summary from 09/20 Subjective Feeling well this morning with no acute complaints. Extensive discussion regarding her anxiety and depressions clear exacerbation of her blood pressures. She says she already follows with a psychiatrist who is been filling her Trintellix as well as previous other depressant medications that she has been on. Discussed that she would likely benefit from being on a dual medication regimen in order to both control her anxiety and depression stop any exacerbations of high blood pressure from her anxiety. She agrees with this. Review of Systems Constitutional: no fever, no chills, no body aches and no fatigue Eyes: no blind spots and no diplopia Respiratory: no cough and no dyspnea Cardiovascular: no chest pain, no dyspnea and no edema Gastrointestinal: no abdominal pain, no nausea, no vomiting, no constipation and no diarrhea/loose stools Genitourinary: no dysuria Neurologic: no unsteadiness, no generalized weakness, no tingling, no numbness, no dizziness and no headache(s) Physical Exam 2 Constitutional: WD/WN, vitals as above Eyes: PERRL, conjunctivae normal, anicteric sclerae normal visual crook by confrontation and EOM intact bilaterally Respiratory: normal respiratory effort, lungs clear to auscultation Cardiovascular: RRR, no murmur, no edema Gastrointestinal (Abdomen): normal bowel sounds, soft, nontender, no hepatosplenomegaly Results & Data ([facility]) Vital Signs (Past 12 Hours) Vital Signs Temp Pulse Pulse Resp BP Pulse Ox 09/21/19 06:57 36.6 C 78 18 136/84 96 09/21/19 03:25 36.6 C 69 16 120/79 97 09/21/19 01:00 70 09/21/19 00:01 36.7 C 74 18 124/82 97 09/21/19 Range/Units 06:03 Sodium 136 (136-145) mmol/L Potassium 3.4 L (3.5-5.1) mmol/L Chloride 103 (98-107) mmol/L Carbon Dioxide 23 (21-32) mmol/L Anion Gap 10.0 (3-11) BUN 25 H (7-18) mg/dl Creatinine 1.33 H (0.6-1.2) mg/dl Est Cr Clr Drug Dosing 45.3 ml/min Est GFR ( Amer) 52.4 Est GFR (Non-Af Amer) 45.2 BUN/Creatinine Ratio 18.5 (10-20) Glucose 96 (70-99) mg/dl Calcium 9.9 (8.5-10.1) mg/dl Resident Activity Tracking Resident Involvement: Resident Care Provided Care Provided: Adult [facility] Medicine
--- NOTE | 2019-09-21 09:31 | Discharge Summary ---
Date of Service September 21, 2019 Admission HPI Per Admitting Provider Patient is a 53-year-old female with a past medical history of hypertension and GERD who presented to her primary care physician's office this morning. At the office she was found to have elevated blood pressures with systolic at 220 and was experiencing intermittent blurring of vision as well as nausea. The patient has not been taking her blood pressure medications for the past 6 months. At this point patient was directed to the hospital for direct admission. Discussion with the patient this morning she says that she has been unable to take her blood pressure medications for the past 6 months due to severe nausea and vomiting that happens after she tries to take them. She attest that this nausea and vomiting also occurs after she has spicy foods, caffeine, and has woken her up in the middle of the night. The nighttime emesis is marked by abdominal cramping that is relieved after the episode of emesis. She does not have any abdominal pain during the day. she states that this nausea and vomiting is also brought on by any medications that are not enterically coated. Notes that aspirin and naproxen also makes the symptoms worse. Denies any hematemesis, hematochezia. Has had loose stools since her gallbladder has been taken out but denies any bright red blood in the stool, pain with bowel movements, melanotic stools. In regards to her blood pressure she says that she does have one-sided in termittent headaches that last few hours, intermittent blurring of vision that lasts a few seconds, but denies any weakness, numbness, tingling that have occurred with any of these episodes. Has never had a stroke or myocardial infarction. Family history of hypertension in her mother and multiple other family members. Is unsure if other family members have also had either stroke or [place]. Patient reports last echo was 4 years ago wherein she was told that she had a thickening of her heart muscle secondary to her uncontrolled high blood pressure. She notes that she does occasionally feel palpitations and increase in heart rate however she attributes this to her postmenopausal symptoms that started after her hysterectomy. Denies any episodes of an abnormal heart rhythm, skipped beats, fast heart rate that does not go away after a couple of seconds, no chest pain. Admission Exam Per Admitting Provider Constitutional: well developed, well nourished and healthy appearing; no acute distress and not ill appearing Eyes: PERRL, conjunctivae normal, anicteric sclerae EOM intact bilaterally ENMT: Mouth: no oral mucosal abnormality and no tongue abnormality Throat: uvula midline Respiratory: normal respiratory effort, lungs clear to auscultation normal respiratory effort; no cough Auscultation: no crackles, no rhonchi and no wheezes Cardiovascular: RRR, no murmur, no edema Heart Sounds: no gallop, no murmur and no cardiac rub Extremities: no calf tenderness Gastrointestinal (Abdomen): normal bowel sounds, soft, nontender, no hepatosplenomegaly Inspection/Auscultation: abdomen not distended Percussion/Palpation: no guarding and abdomen not rigid Skin: normal turgor Neurologic: PERRL, EOMI, accommodation nl, no face palsy, no dysarthria normal touch/pain/proprioception and moves all extremities; no focal motor deficits Psychiatric: A+Ox3, euthymic affect Principal Diagnosis Hypertensive Urgency, Anxiety Discharge Exam Constitutional WD/WN, vitals as above not ill appearing and not in distress Eyes PERRL, conjunctivae normal, anicteric sclerae normal visual crook by confrontation and EOM intact bilaterally Neck trachea midline, no thyromegaly Respiratory normal respiratory effort, lungs clear to auscultation able to speak in complete sentences; no respiratory distress and no cough Auscultation: no crackles, no rhonchi and no wheezes Cardiovascular RRR, no murmur, no edema Heart Sounds: normal S1 and normal S2; no gallop and no murmur Gastrointestinal (Abdomen) Inspection/Auscultation: abdomen normal to inspection and normal bowel sounds; abdomen not distended Percussion/Palpation: abdomen soft; abdomen nontender and no guarding Musculoskeletal no cyanosis or clubbing, extremities motor strength 5/5 Neurologic PERRL, EOMI, accommodation nl, no face palsy, no dysarthria normal touch/pain/proprioception and CN's II-XI intact bilaterally Speech / Cognition: normal speech Motor/Sensory: no tremor Coordination: normal byocja-[id number]-[id number] test and normal [id number] test Discharge Data Allergies Allergy/AdvReac Type Severity Reaction Status Date / Time latex Allergy Unknown RASH Verified 05/03/17 11:55 WEARING LATEX GLOVES No Known Drug Allergies Allergy Unknown NONE Verified 01/19/17 10:26 Consultations 09/18/19 10:04 Consult Gastroenterology Routine 09/18/19 10:06 Consult Case Management - Discharge Planning Routine 09/20/19 18:01 Consult Case Management - Discharge Planning Routine 09/20/19 18:02 Consult JOSÉ MIGUEL supervisor bottle machines Routine Procedures Performed Operation Date: 09/20/19 17:00 Actual Procedures p EGD Biopsy Cytology - Mayito Brooks Ordered Studies 09/20/19 16:21 CT abd pelvis oral and IV con Stat MR brain wo con Routine Hospital Course (1) Hypertensive urgency: 53-year-old female with a history of hypertension and GERD admitted to the hospital for hypertensive urgency after being seen in the outpatient setting was elevated blood pressures and intermittent blurring of vision. 1. Hypertensive urgency - restarted on home medications of 100 mg losartan once a day, hydrochlorothiazidetriamterene 50 mg / 75 mg which did not provide good control. Intermittent IV 10 mg Hydralazine and addition of clonidine patch finally achieved better control in the 150s/90s. - TTE showed EF 60%, LVH, no valvular abnormalities - Of note, patient had brief hypotensive episode after receiving 1 mg ativan for agitation. Anesthesia also noted her blood pressure completely normalized after sedation for EGD. She likely has a strong component of anxiety worsening her hypertension. - patient was normotensive with above regimen (losartan, hctz/triamterene, clonidine patch) + 0.25 mg ativan Q6H prn which was used once/day. Given the difficulty with taking patients off clonidine patches and ativan separately, we did not want to send the patient home with ativan in the event she became dependent on it for anxiety and stress management. Recommend close follow up with counseling, psychiatry and PCP. 2. Nausea - EGD negative for acute disease. CT abd/pelv negative for acute disease, obstruction, bowel wall thickening. - MRI Brain showed no mass lesions or acute intracranial abnormalities; Extensive T2/Flair hyperintensities in white matter noted as nonspecific. Likely chronic microvascular ischemic disease vs. demyelinating process such as multiple sclerosis. Given HX uncontrolled HTN and lack of hx of weakness, tingling, numbness, motor dysfunction less likely MS but will note for PCP to follow up in outpatient setting and monitor for symptoms. - symptoms likely secondary to elevated BP as patient hasn't experienced nausea with BP control in hospital - Patient received 40 mg Pantoprazole BID while in hospital for nausea/GERD control. This was not continued at discharge given negative EGD findings. If alberto juarez continues to have symptoms of nausea while normotensive, can consider restarting PPI. 3. Anxiety - continued home dose of trintillex while in hospital - advised patient to follow closely with psychiatrist and that she may require a combination therapy of two medications to adequately control anxiety and depression symptoms All other chronic medical conditions managed per home regimens. (2) S/P hysterectomy: (3) GERD (gastroesophageal reflux disease): Total Time Total Time Spent Total Time Spent (In Minutes): Discharge Plan Discharge Items Patient Disposition: Home - Self-Care Reason For Visit: HYPERTENSIVE URGENCY,NAUSEA Discharge Diagnosis: Hypertensive Urgency, Anxiety Activity: Resume your previous activity Non-emergency contact: Primary Care Provider Call non-emergency contact if: you have any medication questions and your symptoms worsen Follow-up/Referrals: Kimmie Walters MD [Primary Care Provider] - 09/26/19 9:10 am (Dr. Garcia) Diet: Regular and Low Sodium (2gm) Addtl Attending Provider Instructions: You were sent to the hospital from Dr. Walters's clinic to be evaluated for extremely high blood pressures.While in the hospital, you were started on a new medication called a clonidine patch to help bring down your blood pressures in addition to your home medications of the 100 mg losartan and 50/75 of the hydrochlorothiazide triamterene. During your stay you had an EGD performed in order to evaluate if your nausea was stemming from formation or an ulcer in your stomach. This EGD was negative for any acute disease. You also had a CT scan with contrast of your abdomen and pelvis to evaluate for a small bowel obstruction or other abdominal cause for your nausea, and this was negative as well. You had an MRI of your brain performed in order to evaluate for any mass or lesion that could be causing the nausea. The MRI showed no masses and no acute abnormalities, however it did show what is likely chronic damage to the smallest blood vessels in your brain secondary to the high blood pressures you have been experiencing. However this is a nonspecific finding and we recommend following up with your primary care provider to monitor for further symptoms and ensure that no other processes are ongoing. As we discussed also follow-up with your psychiatrist, Ms. Butler with [facility], to discuss secondary medications adjunct to the Trintillex to help control your anxiety and depression. Pending Studies at Discharge: No Stand-Alone Forms: My [facility], Work/School Release (Inpt), Smoking Cessation Medications and DC Order Prescriptions: New clonidine 0.1 mg/24 hr Patch Weekly 1 patch transdermal CQWK@0900 Qty: 4 RF: 0 triamterene-hydrochlorothiazid 37.5-25 mg Capsule 2 cap PO QAM Qty: 60 RF: 0 Trintellix 10 mg Tablet 20 mg PO QAM Qty: 60 RF: 0 Continued Naproxen (Naprosyn) 500 MG tablet 500 mg PO BID PRN (Reason: PRN) Qty: 0 RF: 0 AZELASTINE HCL-FLUTICASONE PRO (DYMISTA) 1 SPR SPR 1 spry ELFEGO BID Qty: 0 RF: 0 Albuterol Sulfate (Proventil Hfa) 108 MCG/ACT AER 2 puff Inhalation BID PRN (Reason: ALLERGIES) Qty: 0 RF: 0 MONTELUKAST SODIUM (SINGULAIR) tablet 1 tab PO DAILY Qty: 0 RF: 0 LOSARTAN POTASSIUM (COZAAR) 50 MG tablet 1 tab PO DAILY 30 Days Qty: 30 RF: 1 Discontinued Metoprolol Tartrate (Lopressor) (Lopressor) 25 MG tablet 25 mg PO BID Qty: 0 RF: 0 Discharge Orders: Discharge Order (Routine); Ordered 09/21/19 Ordered By: Milton Boyd/Other Patient Handouts: Hypertension Control, High Blood Pressure Risk Factors, High Blood Pressure Stroke Link, High Blood Pressure, Hypertension Dc, Heart Disease Meds, Foods Heart Healthy, BP Check Steps Admission Data Admit Date/Time: 09/18/19 09:05 Attending Provider: Milton Alcazar Admit Provider: Wilner Duncan Primary Care Provider: Kimmie Walters Other Providers: Mayito Brooks ; Wilner Duncan Other Interventions: Discharge Summary Assessment (RN) Last Done: 09/21/19 15:35 DC Date/Time DO NOT enter until pt leaves facility: 09/21/19 16:18 Supervising Physician Co-Signing Physician Notes Patient seen and examined with Dr. Cohn. I agree with her exam findings, review of systems, assessment and plan. I have personally reviewed the lab work and imaging and procedure results from this admission. Reviewed the chart and specialist recommendations. patient feeling well, no headache, no nausea, blood pressure is well controlled today she is eating well, no chest pain, no dyspnea, no cough, no fever/chills discussed the plan to use the clonidine patch for BP control, she understands this - Hypertensive urgency: continue home medications with the addition of Clonidine 0.1mg patch, BP in the 150's systolic will follow up closely with PCP instructed to follow a low sodium diet - Nausea and vomiting: resolved, normal EGD while admitted Resident Activity Tracking Resident Involvement: Resident Care Provided Care Provided: Adult Hospital Medicine
[2019-09-21 15:20] VITALS: PULSE 70; O2SAT 98
[2019-09-21 15:48] VITALS: BP 154/106
--- NOTE | 2019-09-24 08:00 | Billing Data ---
Date of Service September 21, 2019 Coding Level of Care Code D/C Day Management >30 mins Time Spent (min) 32
== END 2019-09-21 16:18 | disposition home or self-care (01) | DRG 305 ==
LOC: 2S 09:05 → SUATTDRO 09:05 → 2S 21:15